=== PATIENT | male | born 1965 | race Caucasian/White ===

== ENCOUNTER 2017-11-25 10:42 | Emergency (ER) | payer MEDICARE, MEDICAID, SELFPAY | END 2017-11-25 12:50 | disposition home or self-care (01) | PROVIDERS: Emergency Provider Nurse Practitioner; Family Provider Internal Medicine Adolescent Medicine; Visit Provider Nurse Practitioner | DX: J32.0 Chronic maxillary sinusitis (principal); I10 Essential (primary) hypertension; E78.5 Hyperlipidemia, unspecified; E11.9 Type 2 diabetes mellitus without complications; F17.210 Nicotine dependence, cigarettes, uncomplicated; Z88.0 Allergy status to penicillin | CPT/HCPCS: G0463; 99201 ==

== ENCOUNTER → 2017-12-24 07:24 | Outpatient (CLI) | payer MEDICARE, MEDICAID, SELFPAY ==
[2017-12-24 09:02] LABS: Hemoglobin A1C 8.7 % (0.0-7.0)
[2017-12-24 09:08] LABS: Alanine Aminotransferase 51 U/L (12-78); Albumin Level 3.8 gm/dL (3.4-5.0); Albumin/Globulin Ratio 1.2 (1.1-1.8); Alkaline Phosphatase 80 U/L (46-116); Anion Gap 15.8 mEq/L (5-15); Aspartate Amino Transferase 18 U/L (15-37); Bilirubin,Total 0.2 mg/dL (0.2-1.0); Blood Urea Nitrogen 20 mg/dL (7-18); Carbon Dioxide 28 mmol/L (21.0-32.0); Chloride 100 mmol/L (98-107); Chol/HDL Ratio 4.7 (1-3.5); Cholesterol 235 mg/dL (140-200); Estimated Glomerular Filt Rate 64 ml/min (>60); GFR (African American) 78 ML/MIN (>60); Globulin 3.2 gm/dl (1.3-3.2); Glucose 160 mg/dL (74-106); HDL Cholesterol 50 mg/dL (27-67); LDL Cholesterol 139 mg/dL (0-130); Potassium 4.8 mmoL/L (3.5-5.1); Sodium 139 mmol/L (136-145); Thyroid Stimulating Hormone 3.03 uIU/ml (0.358-3.740); Triglycerides 228 mg/dL (30-200); VLDL Cholesterol 46 mg/dL (0-40)
[2017-12-25 10:16] LABS: Creatinine, Urine 151.6 mg/dL (Not Estab.); Microalbumin, Urine 31.4 ug/mL (Not Estab.)
== END ==
PROVIDERS: PCP Internal Medicine Adolescent Medicine; Visit Provider Nurse Practitioner Family
DX: E11.42 Type 2 diabetes mellitus with diabetic polyneuropathy (principal); R80.9 Proteinuria, unspecified; E03.9 Hypothyroidism, unspecified
CPT/HCPCS: 36415; 80053; 80061; 82043; 83036; 84443

== ENCOUNTER → 2018-03-04 07:17 | Outpatient (CLI) | payer MEDICARE, MEDICAID, SELFPAY ==
--- NOTE | 2018-03-04 07:24 | XR_ITS ---
XR hip LT 2-3V w/pelvis Ordering Physician: Christina Deutsch Patient Age: 52 years: Male HISTORY: ITS.REASON: LT HIP PAIN , SACROILIAC JOINT DISFUNCTION OF LT SIDE TECHNIQUE: AP pelvis with AP and frog-leg view left hip COMPARISON :Previous left hip from 2008 FINDINGS . Joint spaces fairly well maintained with only borderline narrowing at superior hip joint space. No appreciable change since 2008. Femoral head & neck normal contour . Sclerotic bone island is seen at the left femoral neck 7 mm size. Another bone island 6 mm at at superior left subcapital region. These are stable appearing bone islands versus 2008. Patient also has a similar 6 mm bone island at base of right femoral head The right hip appears intact again with only borderline narrowing superior right hip joint space. . The remainder of the visualized pelvis appears stable and satisfactory. The mild variations at the inferior left sacral contour are again noted. Anatomical variation feature. IMPRESSION Left hip intact with no fracture nor subluxation. Hip joint spaces are well-maintained overall. Only question borderline narrowing at both superior hip joint spaces bilateral. Osseous pelvis intact..
--- NOTE | 2018-03-04 07:24 | XR_ITS ---
XR sacroiliac joint BI min 3V Ordering Physician: Christina Deutsch Patient Age: 52 years: Male HISTORY: ITS.REASON: LT HIP PAIN , SACROILIAC JOINT DISFUNCTION OF LT SIDE TECHNIQUE: AP and Oblique views SI joints COMPARISON :Left hip from today. Previous KUB 2008 FINDINGS The SI joints appear are well-maintained and appears normal width. No abnormal sclerosis nor irregularity is been no significant change since 2008 KUB. Sacrum unremarkable. 3.5 mm calcification is Likely a Phlebolith projects over the left sacrum , or calcification within stool. IMPRESSION: Normal SI joints.
== END ==
PROVIDERS: PCP Internal Medicine Adolescent Medicine; Visit Provider Nurse Practitioner Family
DX: M25.552 Pain in left hip (principal); M53.3 Sacrococcygeal disorders, not elsewhere classified
CPT/HCPCS: 72202; 73502

== ENCOUNTER 2018-04-30 08:00 | Outpatient (RCR) | payer MEDICARE, MEDICAID, SELFPAY ==
--- NOTE | 2018-03-10 09:56 | HMH.PTOPEV ---
Rehab Outpatient Evaluation Rehab OP Evaluation Start: 03/10/18 09:17 Freq: Status: Active Protocol: Document 03/10/18 09:18 PAMELA (Rec: 03/10/18 09:56 PAMELA [id number]) Electronically Signed By Julito Mejia, PT 03/10/18 09:18 Outpatient Therapy Subjective History Subjective History Pt reports injury to L hip and low back during a slip/fall ~ 1 month ago. Pt reports L lateral and anterior hip pain initially, however, more L sided LBP of late with radicular s/s from L hip to L calf area. 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 Chief Complaint Pain Stiff Paresthesia Weakness Symptom Type Ache Throb Dull Numbness Tingling Shooting Symptoms Relieved By Rest/Positioning Ice Symptoms Aggravated By Sitting Bending/Stooping Physical Activity Lifting Prior Functional Limitations None Current Functional Limitations Lifting Driving Sitting Bending/Stooping Symptom Description Constant but Variable Level of pain today (0-10) 7 Pain scale - at its best (0-10) 6 Pain scale - at its worst (0-10) 10 Lumbopelvic Eval Posture Thoracic Spine Posture Standing Position Neutral Lumbar Spine Posture Standing Position Flattened Assistive device Assistive Devices None / NA Gait Observation General Gait Pattern Observation Antalgic Gait Palapation tenderness right lumbar spinal tenderness Yes: 3/4 paraspinal tenderness Yes: 1/4 Lumbar/Sacral Palpation Findings Tenderness left lumbar spinal tenderness Yes paraspinal tenderness Yes buttock tenderness Yes: all 3/4 Lumbar/Sacral Palpation Findings Tenderness Muscle Guarding Accessory Movement T-spine Vertebrae Accessory Movements Central P/A [place] that Elicit Symptoms T10 left T11 left T12 left L-spine Vertebrae Accessory Movements Central [place] [place] that Elicit Symptoms L2 left
== END 2018-04-30 08:01 | disposition home or self-care (01) ==
LOC: PT 08:00
PROVIDERS: Family Provider Internal Medicine Adolescent Medicine; PCP Internal Medicine Adolescent Medicine; Visit Provider Nurse Practitioner Family
DX: M25.552 Pain in left hip (principal); M53.3 Sacrococcygeal disorders, not elsewhere classified
CPT/HCPCS: 97010; 97012; 97014; 97035; 97110; 97140; G0283

== ENCOUNTER 2018-08-10 03:54 | Observation (INO) ==
[2018-08-10 04:20] LABS: Basophils # 0.1 K/mm3 (0-0.2); Basophils % 0.8 % (0.1-2.0); Eosinophils # 0.2 K/mm3 (0.0-0.4); Eosinophils % 1.9 % (0.1-12.0); Hematocrit 41.2 % (42.0-52.0); Hemoglobin 14.6 g/dL (14.1-18.0); Lymphocytes # 3.7 K/mm3 (0.7-4.5); Lymphocytes % 34.4 K/mm3 (10-50); Mean Corpuscular HGB Conc 35.5 g/dL (31.8-35.4); Mean Corpuscular Hemoglobin 32.2 pg (27.0-31.2); Mean Corpuscular Volume 90.6 fl (80-94); Mean Platelet Volume 7.2 fl (7.4-10.4); Monocytes # 0.7 K/mm3 (0.1-1.0); Monocytes % 6.4 % (1.7-9.3); Neutrophils # 6.2 K/mm3 (1.8-7.8); Neutrophils % 56.6 % (37.0-80.0); Platelet Count 257 K/mm3 (142-424); Red Blood Count 4.54 M/mm3 (4.60-6.20); Red Cell Distribution Width 13.4 % (11.5-17.5); White Blood Count 10.9 K/mm3 (4.8-10.8)
[2018-08-10 04:42] LABS: Anion Gap 9.9 mEq/L (5-15); Blood Urea Nitrogen 23 mg/dL (7-18); Calcium 8.4 mg/dL (8.5-10.1); Carbon Dioxide 25 mmol/L (21.0-32.0); Chloride 103 mmol/L (98-107); Glucose 265 mg/dL (74-106); Potassium 3.9 mmoL/L (3.5-5.1); Sodium 134 mmol/L (136-145); T4 (Thyroxine) 6.5 ug/dl (4.7-13.3); Thyroid Stimulating Hormone 5.16 uIU/ml (0.358-3.740)
--- NOTE | 2018-08-10 04:56 | Emergency Department Note ---
ED Disposition Clinical Impression: Overweight, Tobacco use Chest pain Qualifiers: Chest pain type: precordial pain Qualified Code(s): R07.2 - Precordial pain Diabetes mellitus, insulin dependent (IDDM), uncontrolled Qualifiers: Glycemic state: with hyperglycemia Qualified Code(s): E10.65 - Type 1 diabetes mellitus with hyperglycemia Disposition: Admitted as Observation Condition on Discharge: Good Referrals: Dsutin Cosby MD [Primary Care Provider] - - Critical Care Critical Care Time: No Attestation: On 08/10/18, the high probability of a clinically significant, sudden or life threatening deterioration of the following system(s) required my full and direct attention, intervention and personal management. The time I documented below is in addition to time spent performing reported procedures but includes the following listed in this critical care notation. Medical Decision Making - Medical Records Medical records reviewed: Yes: I reviewed the patient's medical records. - Mamadou Inquiry Pt receiving controlled substance: No Vital Signs: 08/10/18 03:54 08/10/18 04:24 Temperature 98.5 F Temperature Source Oral Pulse Rate [Right Brachial] 88 83 Respiratory Rate 16 16 Blood Pressure [Right Arm] 126/89 122/80 Blood Pressure Mean [Right Arm] 101 94 02 Sat by Pulse Oximetry 96 94 L Oxygen Delivery Method Room Air - Lab Data Lab results reviewed: Yes: I reviewed the patient's lab results. Lab Results 08/10/18 04:01: WBC 10.9 H, RBC 4.54 L, Hgb 14.6, Hct 41.2 L, MCV 90.6, MCH 32.2 H, MCHC 35.5 H, RDW 13.4, Plt Count 257, MPV 7.2 L, Neut % (Auto) 56.6, Lymph % (Auto) 34.4, [place]ayer % (Auto) 6.4, Eos % (Auto) 1.9, Baso % (Auto) 0.8, Neut # (Auto) 6.2, Lymph # (Auto) 3.7, [place] # (Auto) 0.7, Eos # (Auto) 0.2, Baso # (Auto) 0.1 08/10/18 04:01: Sodium 134 L, Potassium 3.9, Chloride 103, Carbon Dioxide 25, Anion Gap 9.9, BUN 23 H, Creatinine 1.09, Estimated Creat Clear 111, Estimated GFR 71, Est GFR ( Amer) 86, Glucose 265 H, Calcium 8.4 L, Troponin I < 0.02, TSH 5.16 H D, Thyroxine (T4) 6.5 Result diagrams: 08/10/18 04:01 08/10/18 04:01 Orders (Tests/Meds): ED MEDICATIONS Generic Name Dose Route Start Last Admin Trade Name Freq PRN Reason Stop Dose Admin Sodium Chloride 1,000 mls @ 999 mls/hr 08/10/18 04:15 08/10/18 04:07 Sod Chlor 0.9% 1000ml Bag IV 08/10/18 05:15 999 mls/hr .Q1H1M DAVID Administration Discontinued Medications Generic Name Dose Route Start Last Admin Trade Name Freq PRN Reason Stop Dose Admin Aspirin 324 mg 08/10/18 03:58 08/10/18 04:06 Aspirin 81mg Chewable Tablet PO 08/10/18 03:59 324 mg ONCE ONE Administration Nitroglycerin 1 gm 08/10/18 03:58 08/10/18 04:06 Nitroglycerin 1 Inch Oint Udp TD 08/10/18 03:59 1 gm ONCE ONE Administration Ondansetron HCl 4 mg 08/10/18 04:07 08/10/18 04:08 Zofran 4mg/2ml Vial IV 08/10/18 04:08 4 mg ONCE ONE Administration ORDERS Category Date Time Status ECG Request by /Nadia Stat Y 08/10/18 03:58 Ordered - Radiology Data #1 Image(s): Chest Image Reviewed: Yes I reviewed the patient's radiology image Preliminary Findings: Normal/NAD - ECG Data Tracing #1 Normal Sinus Rhythm: Yes Ischemic changes: non-specific ST-T wave changes - Physician Consults Physician Consulted: tammie Reason -: Admission Chest Pain HPI - General Chief Complaint: Chest Pain Stated Complaint: chest pain Time Seen by Provider: 08/10/18 04:05 Mode of Arrival: Ambulatory Limitations: No Limitations Description of Symptoms (Recalled from ER Triage Doc. by RN): Chest pain that started approx 0300. Reports it feels like pressure and intermittent sharp/stabbing pain when taking a deep breath. Reports it as mid sternal, no radiating. C/o nausea, and soa. - History of Present Illness HPI narrative: new onset of ant chest pain - sharp with no known ht disease - MD complaint: chest pain indicative of cardiac Onset (ago): hour(s) Duration: now resolved Activity at onset: during rest Pain location: substernal Severity: moderate Quality: sharp Pain radiation: none Relieving factors: nitroglycerin Associated symptoms: nausea, dyspnea Risk Factors for CAD: Hypertension, Family Hx of CAD, Diabetes, Smoking Treatments prior to or on arrival for Cardiac Chest Pain: none - QUENTIN Score Non-Stemi Age of patient: Less than 65 yrs Number of risk factors for CAD: Presence of 3 or more Prior coronary artery stenosis(seen in coronary angiography): Less than 50% ST-Segment deviation on ECG (more than 1 min): Absent Prior aspirin intake: No ASA in the last 7 days Severe anginal chest pain: No or one episode in last 24 hours Elevated cardiac markers(CK-MB or troponin): Absent Non-Stemi Risk Score: 1 - Related Data Home Medications Medication Instructions Recorded Confirmed Cyclobenzaprine HCl 10 mg PO DAILY 08/10/18 08/10/18 [Cyclobenzaprine 10mg Tab] Escitalopram Oxalate 10 mg PO DAILY 08/10/18 08/10/18 Fluticasone/Vilanterol [Breo 1 each IH DAILY 08/10/18 08/10/18 Ellipta 100-25 Mcg INH] Insulin Glargine,Hum.rec.anlog 46 unit SQ 08/10/18 08/10/18 [Toujeo Solostar] Levocetirizine Dihydrochloride 5 mg PO DAILY 08/10/18 08/10/18 [Xyzal] Magnesium Oxide/Magnesium 300 mg PO DAILY 08/10/18 08/10/18 [Magnesium 300 mg Capsule] Meloxicam 15 mg PO DAILY 08/10/18 08/10/18 Omeprazole [Omeprazole 40mg 40 mg PO DAILY 08/10/18 08/10/18 Capsule] Pregabalin [Lyrica 100mg Cap] 50 mg PO DAILY 08/10/18 08/10/18 Rosuvastatin Calcium 20 mg PO 08/10/18 08/10/18 Sitagliptin Phos/Metformin HCl 1 each PO DAILY 08/10/18 08/10/18 [Janumet 50-1,000 mg Tablet] Trazodone HCl 150 mg PO HS 08/10/18 08/10/18 Allergies Allergy/AdvReac Type Severity Reaction Status Date / Time penicillin G [PENICILLIN G] Allergy Unknown Hives Verified 08/10/18 04:00 [facility] History I have reviewed the patient's past medical history: Yes Medical History: Reports:: Diabetes Mellitus Type 2 Denies:: Cancer, Diabetes Mellitus Type 1, MRSA Amputation: No Fractures: No - Social History Smoking Status: Current every day smoker Tobacco Type: cigarettes Alcohol Intake: never - Psychiatric History Expresses thoughts of harming self/others: None Suicide Plan Description: No Plan ROS Obtained: Yes All systems reviewed & no additional complaints - Constitutional Constitutional: Denies fever(s) - Eyes Eyes: Denies change in vision - ENT Ears, Nose, Mouth, and Throat: Denies sore throat, Denies vertigo/dizziness - Cardiovascular Cardiovascular: Reports chest pain, Reports dyspnea - Respiratory Respiratory: No cough - Gastrointestinal Gastrointestingal: Denies: abdominal pain - Genitourinary Male Genitourinary: Denies hematuria - Musculoskeletal Musculoskeletal: Denies joint pain, Denies limited range of motion - Integumentary/Breasts Skin/Breast: Denies rash - Neurologic Neurologic: Denies seizure-like activity Physical Exam - General General appearance: alert, in no apparent distress - Head Head exam: normocephalic - Eye Eye exam: Present: PERRL, EOMI - ENT ENT exam: Present: mucous membranes dry - Neck Neck exam: Present: trachea midline - Respiratory Respiratory exam: Present: normal lung sounds bilaterally - Cardiovascular Cardiovascular exam: Present: regular rate, systolic murmur, +S4 - Abdominal Exam Abdominal exam: Present: soft - Extremities Exam Extremities exam: Absent: calf tenderness - Neurological Exam Neurological exam: Present: alert, oriented X3, CN II-XII intact - Psychiatric Psychiatric exam: Present: normal affect - Skin Skin exam: Present: warm. Absent: rash
[2018-08-10 05:21] LABS: Cholesterol 141 mg/dL (140-200); HDL Cholesterol 35 mg/dL (27-67)
[2018-08-10 05:23] LABS: Triglycerides 413 mg/dL (30-200)
--- NOTE | 2018-08-10 07:25 | Pharmacy Consult Notes ---
[facility] Pharmacy VTE Monitoring - Patient Demographics Admission date: 08/10/18 Report Date: 08/10/18 Time: 07:25 Allergies/Adverse Reactions: Patient Allergies penicillin G [PENICILLIN G] Allergy (Unknown, Verified 08/10/18 04:00) Hives Height: 1.7 m Weight: 101.378 kg Patient Problems: Current Active Problems Chest pain (Acute) Diabetes mellitus, insulin dependent (IDDM), uncontrolled (Acute) Overweight (Acute) Tobacco use (Acute) - VTE Risk Labs: VTE Related Lab Results Hgb 14.6 g/dL (14.1-18.0) 08/10/18 04:01 Hct 41.2 % (42.0-52.0) L 08/10/18 04:01 Plt Count 257 K/mm3 (142-424) 08/10/18 04:01 BUN 23 mg/dL (7-18) H 08/10/18 04:01 Creatinine 1.09 mg/dL (0.70-1.30) 08/10/18 04:01 Estimated Creat Clear 111 mL/min (0-300) 08/10/18 04:01 VTE Score: 4 VTE Risk Level: Low Risk - Prophylaxis VTE Prophylaxis Ordered?: Yes Types of VTE Prophylaxis: TEDS Knee High Location of Applied Device: Bilateral Lower Extremeties - VTE Diagnosis Confirmed Treatment or plan recommended: Continue Current Treatment
--- NOTE | 2018-08-10 07:26 | History & Physical Report ---
*Admission Date: 08/10/18 *Chief complaint: Left anterior chest pain *History of present illness: 53-year-old white male with significant cardiac risk factors 3 who presented to the emergency department with 2 hours of substernal pressure-like pain that was associated with work early this morning. 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 ER treatment significantly helped with his pain and currently he is pain-free. He was admitted for risk stratification because of his significant risk factors. [facility] History I have reviewed the patient's past medical history: Yes Medical History: Reports:: Diabetes Mellitus Type 2, Hyperlipidemia, Hypertension Denies:: Cancer, Diabetes Mellitus Type 1, MRSA Other Medical History: Reports: Arthritis, Sinus Problems Other Surgeries: Yes: Colonoscopy Amputation: No Fractures: No - *Social History Educational Level: Completed High School Smoking Status: Current every day smoker Tobacco Type: cigarettes Alcohol Intake: never Occupational Status: employed Housing: house Household Members: spouse - Psychiatric History Expresses thoughts of harming self/others: None Suicide Plan Description: No Plan *Family Hx:: Adopted, Cancer, Diabetes, Hyperlipidemia, Hypertension, Thyroid Disorder Review of Systems - Review of Systems Review of systems:: pertinent systems reviewed and negative unless documented below - *Cardiovascular Reports chest pain, Reports chest pain with activity, Reports shortness of breath, Denies irregular heart rhythm, Denies leg swelling, Denies shortness of breath when lying down - *Respiratory Denies change in phlegm color, Denies chest congestion, Denies cough - *Gastrointestinal Denies abdominal pain - *Neurologic Denies seizure-like activity, Denies dizziness Meds Home Medications Medication Instructions Recorded Confirmed Type Cyclobenzaprine HCl 10 mg PO DAILY 08/10/18 08/10/18 History [Cyclobenzaprine 10mg Tab] Escitalopram Oxalate 10 mg PO DAILY 08/10/18 08/10/18 History Fluticasone/Vilanterol [Breo 1 each IH DAILY 08/10/18 08/10/18 History Ellipta 100-25 Mcg INH] Insulin Glargine,Hum.rec.anlog 46 unit SQ HS 08/10/18 08/10/18 History [Dana Ballesteros] Levocetirizine Dihydrochloride 5 mg PO DAILY 08/10/18 08/10/18 History [Xyzal] Lisinopril [Lisinopril 10mg Tab] 10 mg PO DAILY 08/10/18 08/10/18 History Magnesium Oxide/Magnesium 400 mg PO BID 08/10/18 08/10/18 History [Magnesium 300 mg Capsule] Meloxicam 15 mg PO DAILY PRN 08/10/18 08/10/18 History Omeprazole [Omeprazole 40mg 40 mg PO DAILY 08/10/18 08/10/18 History Capsule] Pregabalin [Lyrica 100mg Cap] 50 mg PO DAILY 08/10/18 08/10/18 History Rosuvastatin Calcium 20 mg PO HS 08/10/18 08/10/18 History Sitagliptin Phos/Metformin HCl 1 each PO BID 08/10/18 08/10/18 History [Janumet 50-1,000 mg Tablet] Trazodone HCl 150 mg PO HS 08/10/18 08/10/18 History Allergies Allergy/AdvReac Type Severity Reaction Status Date / Time penicillin G [PENICILLIN G] Allergy Unknown Hives Verified 08/10/18 04:00 Exam Vital signs and Labs for Last 24 Hours: Temp Pulse Resp BP Pulse Ox 98 F 78 18 150/79 95 08/10/18 05:27 08/10/18 05:51 08/10/18 05:51 08/10/18 05:51 08/10/18 06:00 Laboratory Results - last 24 hr 08/10/18 04:01: WBC 10.9 H, RBC 4.54 L, Hgb 14.6, Hct 41.2 L, MCV 90.6, MCH 32.2 H, MCHC 35.5 H, RDW 13.4, Plt Count 257, MPV 7.2 L, Neut % (Auto) 56.6, Lymph % (Auto) 34.4, [place] % (Auto) 6.4, Eos % (Auto) 1.9, Baso % (Auto) 0.8, Neut # (Auto) 6.2, Lymph # (Auto) 3.7, [place] # (Auto) 0.7, Eos # (Auto) 0.2, Baso # (Auto) 0.1 08/10/18 04:01: Sodium 134 L, Potassium 3.9, Chloride 103, Carbon Dioxide 25, Anion Gap 9.9, BUN 23 H, Creatinine 1.09, Estimated Creat Clear 111, Estimated GFR 71, Est GFR ( Amer) 86, Glucose 265 H, Calcium 8.4 L, Troponin I < 0.02, TSH 5.16 H D, Thyroxine (T4) 6.5 08/10/18 04:01: Triglycerides 413 H, Cholesterol 141, HDL Cholesterol 35, Cholesterol/HDL Ratio 4.0 H 08/10/18 04:01: Magnesium 1.6 08/10/18 06:37: POC Glucose 263 H I & O for Last 24 hours: Intake & Output 08/07/18 08/08/18 08/09/18 08/10/18 11:59 11:59 11:59 11:59 Intake Total 1000 / 1000 Balance 1000 / 1000 Weight 223 lb 8 oz - *Routine HEENT Exam Head: Present: normocephalic Eye: Present: EOMI ENT: Present: mucous membranes moist - *Routine Neck Exam Present: full ROM. Absent: JVD - *Routine Respiratory Exam Present: CTA bilaterally - *Routine Cardiovascular Exam Present: RRR, Normal S1, Normal S2 - *Routine Abdominal Exam Present: soft, normoactive bowel sounds. Absent: tenderness - *Routine Extremities Exam Absent: cyanosis, clubbing, edema - *Routine Skin Exam Present: warm. Absent: rash - *Routine Neurological Exam Present: alert, oriented X3 - Routine Psychiatric Exam Present: normal affect Assessment and Plan (1) Chest pain Current visit: Yes Status: Acute Qualifiers: Chest pain type: precordial pain Qualified Code(s): R07.2 - Precordial pain Category: Medical Code(s): R07.9 - Chest pain, unspecified Significant risk factors. Cardiology consultation. Patient deserves significant evaluation given his risk factors and character of his pain. (2) Diabetes mellitus, insulin dependent (IDDM), uncontrolled Current visit: Yes Status: Acute Qualifiers: Glycemic state: with hyperglycemia Qualified Code(s): E10.65 - Type 1 diabetes mellitus with hyperglycemia Category: Medical Code(s): E10.65 - Type 1 diabetes mellitus with hyperglycemia (3) Overweight Current visit: Yes Status: Acute Category: Medical Code(s): E66.3 - Overweight Complicates all aspects of his care (4) Tobacco use Current visit: Yes Status: Acute Category: Social Hx Code(s): Z72.0 - Tobacco use
--- NOTE | 2018-08-10 08:04 | Consult Report ---
History of Present Illness Consult date: 08/10/18 Requesting physician: Dustin Cosby Consult reason: chest pain Chief complaint: chest pain Additional Medical History:: 1. Diabetes mellitus, type II, treated for about 10 years 2. Tobacco use, 1 pack per day since age 27 3. hyperlipidemia 4. Hypertension 5. Patient adopted with incomplete family history database, mother in her early 60s with history of diabetes 6. Gastroesophageal reflux disease, on PPI History of present illness: 53-year-old white male history of diabetes, hypertension, hyperlipidemia and tobacco use was at work at [employer] with onset of left-sided chest discomfort (both sharp and heavy sensations) with associated shortness of breath and diaphoresis. Some increase in discomfort with deep breathing. Symptoms had mildly improved with belching but returned shortly thereafter. Patient was brought to the emergency department for further. He relates resolution of symptoms shortly after being started on nitroglycerin paste. Initial troponin is normal. EKG showed no acute ST segment changes with sinus rhythm. Patient denies any previous cardiac workup or previous cardiac history. Cardiology consulted for evaluation recommendations. No appreciable chest wall tenderness. No current discomfort with deep breathing. Denies any recent fever, chills, nausea, vomiting or diarrhea. He does relate feeling fatigued with exertion over the last week which is new to him. [facility] History Medical History: Reports:: Diabetes Mellitus Type 2, Hyperlipidemia, Hypertension Denies:: Cancer, Diabetes Mellitus Type 1, MRSA Other Medical History: Reports: Arthritis, Sinus Problems Other Surgeries: Yes: Colonoscopy Amputation: No Fractures: No - *Social History Educational Level: Completed High School Smoking Status: Current every day smoker Tobacco Type: cigarettes Alcohol Intake: never Occupational Status: employed Housing: house Household Members: spouse - Psychiatric History Expresses thoughts of harming self/others: None Suicide Plan Description: No Plan *Family Hx:: Adopted, Cancer, Diabetes, Hyperlipidemia, Hypertension, Thyroid Disorder Meds Home Medications Medication Instructions Recorded Confirmed Type Cyclobenzaprine HCl 10 mg PO DAILY 08/10/18 08/10/18 History [Cyclobenzaprine 10mg Tab] Escitalopram Oxalate 10 mg PO DAILY 08/10/18 08/10/18 History Fluticasone/Vilanterol [Breo 1 puff IH DAILY 08/10/18 08/10/18 History Ellipta 100-25 Mcg INH] Insulin Glargine,Hum.rec.anlog 46 unit SQ HS 08/10/18 08/10/18 History [Toumolly Solostar] Levocetirizine Dihydrochloride 5 mg PO DAILY 08/10/18 08/10/18 History [Xyzal] Lisinopril [Lisinopril 10mg Tab] 10 mg PO DAILY 08/10/18 08/10/18 History Magnesium Oxide/Magnesium 300 mg PO BID 08/10/18 08/10/18 History [Magnesium 300 mg Capsule] Meloxicam 15 mg PO DAILYP PRN 08/10/18 08/10/18 History Omeprazole [Omeprazole 40mg 40 mg PO DAILY 08/10/18 08/10/18 History Capsule] Pregabalin [Lyrica 100mg Cap] 50 mg PO DAILY 08/10/18 08/10/18 History Rosuvastatin Calcium 20 mg PO HS 08/10/18 08/10/18 History Sitagliptin Phos/Metformin HCl 1 each PO BID 08/10/18 08/10/18 History [Janumet 50-1,000 mg Tablet] Trazodone HCl 150 mg PO HS 08/10/18 08/10/18 History Allergies Allergy/AdvReac Type Severity Reaction Status Date / Time penicillin G [PENICILLIN G] Allergy Unknown Hives Verified 08/10/18 04:00 Review of Systems - *Cardiovascular Reports chest pain - *Respiratory Denies cough, Denies shortness of breath with activity - *Gastrointestinal Denies abdominal pain, Denies loose stools, Denies loose stools - *Genitourinary Denies difficulty urinating, Denies blood in urine - *Musculoskeletal Denies back pain - *Neurologic Denies seizure-like activity, Denies dizziness Exam Vital signs and Labs for Last 24 Hours: Temp Pulse Resp BP Pulse Ox 98 F 78 18 150/79 95 08/10/18 05:27 08/10/18 05:51 08/10/18 05:51 08/10/18 05:51 08/10/18 06:00 Laboratory Results - last 24 hr 08/10/18 04:01: WBC 10.9 H, RBC 4.54 L, Hgb 14.6, Hct 41.2 L, MCV 90.6, MCH 32.2 H, MCHC 35.5 H, RDW 13.4, Plt Count 257, MPV 7.2 L, Neut % (Auto) 56.6, Lymph % (Auto) 34.4, [place] % (Auto) 6.4, Eos % (Auto) 1.9, Baso % (Auto) 0.8, Neut # (Auto) 6.2, Lymph # (Auto) 3.7, [place] # (Auto) 0.7, Eos # (Auto) 0.2, Baso # (Auto) 0.1 08/10/18 04:01: Sodium 134 L, Potassium 3.9, Chloride 103, Carbon Dioxide 25, Anion Gap 9.9, BUN 23 H, Creatinine 1.09, Estimated Creat Clear 111, Estimated GFR 71, Est GFR ( Amer) 86, Glucose 265 H, Calcium 8.4 L, Troponin I < 0.02, TSH 5.16 H D, Thyroxine (T4) 6.5 08/10/18 04:01: Triglycerides 413 H, Cholesterol 141, HDL Cholesterol 35, Cholesterol/HDL Ratio 4.0 H 08/10/18 04:01: Magnesium 1.6 08/10/18 06:37: POC Glucose 263 H I & O for Last 24 hours: Intake & Output 08/07/18 08/08/18 08/09/18 08/10/18 11:59 11:59 11:59 11:59 Intake Total 1000 / 1000 Balance 1000 / 1000 Weight 223 lb 8 oz - *Routine Neck Exam Present: supple. Absent: JVD, carotid bruit - *Routine Respiratory Exam Present: CTA bilaterally. Absent: accessory muscle use, rales, rhonchi, wheezes - *Routine Cardiovascular Exam Present: RRR. Absent: murmur, gallop, rubs - *Routine Abdominal Exam Present: soft. Absent: tenderness, distended, guarding - *Routine Extremities Exam Absent: edema, calf tenderness - *Routine Neurological Exam Present: alert, oriented X3, moving all extremities Assessment and Plan (1) Chest pain Current visit: Yes Status: Acute Qualifiers: Chest pain type: precordial pain Qualified Code(s): R07.2 - Precordial pain Category: Medical Code(s): R07.9 - Chest pain, unspecified (2) Diabetes mellitus, insulin dependent (IDDM), uncontrolled Current visit: Yes Status: Acute Qualifiers: Glycemic state: with hyperglycemia Qualified Code(s): E10.65 - Type 1 diabetes mellitus with hyperglycemia Category: Medical Code(s): E10.65 - Type 1 diabetes mellitus with hyperglycemia (3) Overweight Current visit: Yes Status: Acute Category: Medical Code(s): E66.3 - Overweight (4) Tobacco use Current visit: Yes Status: Acute Category: Social Hx Code(s): Z72.0 - To bacco use (5) Hypertension Current visit: Yes Status: Acute Category: Medical Code(s): I10 - Essential (primary) hypertension (6) Hyperlipidemia associated with type 2 diabetes mellitus Current visit: Yes Status: Acute Category: Medical Code(s): E11.69 - Type 2 diabetes mellitus with other specified complication; E78.5 - Hyperlipidemia, unspecified - Assessment and plan all Dx Assessment and Plan for all problems:: 1. Exertional Chest pain in a diabetic smoker with QUENTIN risk score of 2 (risk factors, recurrent chest pain). Recommend proceeding with cardiac cath in this male with multiple risk factors. 2. Further recommendations to follow. 3. Recommend Daily ASA 81 mg.
--- NOTE | 2018-08-10 16:46 | Discharge Summary ---
General - General Admission date:: 08/10/18 Discharge date: 08/10/18 HPI HPI: 53-year-old white male with significant cardiac risk factors 3 who presented to the emergency department with 2 hours of substernal pressure-like pain that was associated with work early this morning. 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 ER treatment significantly helped with his pain and currently he is pain-free. He was admitted for risk stratification because of his significant risk factors. Hospital Course Hospital Course: Patient was admitted, and out for myocardial infarction, given his significant risk factors he was subjected to left cardiac catheterization. The results of which and cardiac consultation recommendations are noted in the text below: ANGIOGRAPHIC RESULTS: 1. The left main artery normal 2. The left anterior descending artery normal 3. The circumflex artery nondominant normal 4. The right coronary artery is dominant with mid vessel 10-20% nonflow limiting stenoses 5. The SANTIZO ventriculogram reveals normal 65% 6. The left ventricular end-diastolic pressure severely elevated at 35 mmHg IMPRESSION: 1. Mild nonflow limiting coronary artery disease 2. Severe diastolic dysfunction which likely accounts for patient's symptomatology 3. Normal ejection fraction PLAN: 1. Treatment of severe diastolic dysfunction with diuretics and better blood pressure control 2. Consider evaluation for sleep apnea 3. Weight-loss physical therapy Patient will be discharged with medication change and recommendations as noted above. Follow-up in my office on Friday. Strongly encouraged to stop smoking. Objective Vital signs: Temp Pulse Resp BP Pulse Ox 97.9 F 63 18 148/82 98 08/10/18 16:00 08/10/18 16:00 08/10/18 16:00 08/10/18 16:00 08/10/18 16:00 Narrative: Please see physical exam notes from admission H&P this morning Results Labs on day of discharge: Labs from last 24 hours 08/10/18 08/10/18 08/10/18 11:21 08:15 06:37 WBC RBC Hgb Hct MCV MCH MCHC RDW Plt Count MPV Neut % (Auto) Lymph % (Auto) [place] % (Auto) Eos % (Auto) Baso % (Auto) Neut # (Auto) Lymph # (Auto) [place] # (Auto) Eos # (Auto) Baso # (Auto) Sodium Potassium Chloride Carbon Dioxide Anion Gap BUN Creatinine Estimated Creat Clear Estimated GFR Est GFR ( Amer) Glucose POC Glucose 263 H Calcium Magnesium Troponin I < 0.02 < 0.02 Triglycerides Cholesterol HDL Cholesterol Cholesterol/HDL Ratio TSH Thyroxine (T4) 08/10/18 08/10/18 08/10/18 04:01 04:01 04:01 WBC RBC Hgb Hct MCV MCH MCHC RDW Plt Count MPV Neut % (Auto) Lymph % (Auto) [place] % (Auto) Eos % (Auto) Baso % (Auto) Neut # (Auto) Lymph # (Auto) [place] # (Auto) Eos # (Auto) Baso # (Auto) Sodium 134 L Potassium 3.9 Chloride 103 Carbon Dioxide 25 Anion Gap 9.9 BUN 23 H Creatinine 1.09 Estimated Creat Clear 111 Estimated GFR 71 Est GFR ( Amer) 86 Glucose 265 H POC Glucose Calcium 8.4 L Magnesium 1.6 Troponin I < 0.02 Triglycerides 413 H Cholesterol 141 HDL Cholesterol 35 Cholesterol/HDL Ratio 4.0 H TSH 5.16 H D Thyroxine (T4) 6.5 08/10/18 04:01 WBC 10.9 H RBC 4.54 L Hgb 14.6 Hct 41.2 L MCV 90.6 MCH 32.2 H MCHC 35.5 H RDW 13.4 Plt Count 257 MPV 7.2 L Neut % (Auto) 56.6 Lymph % (Auto) 34.4 [place] % (Auto) 6.4 Eos % (Auto) 1.9 Baso % (Auto) 0.8 Neut # (Auto) 6.2 Lymph # (Auto) 3.7 [place] # (Auto) 0.7 Eos # (Auto) 0.2 Baso # (Auto) 0.1 Sodium Potassium Chloride Carbon Dioxide Anion Gap BUN Creatinine Estimated Creat Clear Estimated GFR Est GFR ( Amer) Glucose POC Glucose Calcium Magnesium Troponin I Triglycerides Cholesterol HDL Cholesterol Cholesterol/HDL Ratio TSH Thyroxine (T4) DS: Diagnosis - Discharge Diagnosis (1) Chest pain Status: Resolved (2) Diabetes mellitus, insulin dependent (IDDM), uncontrolled Status: Acute (3) Overweight Status: Acute (4) Tobacco use Status: Acute (5) Hypertension Status: Acute (6) Hyperlipidemia associated with type 2 diabetes mellitus Status: Acute (7) Diastolic CHF Status: Acute Discharge Plan - Patient Discharge Instructions ACTIVITY: Continue current activity DIET: low salt diet, cardiac - Follow up Plan Follow up with: Dutsin Cosby MD [Primary Care Provider] - 08/14/18 Disposition: Home, Self-[facility] Medications: Home Medications Medication Instructions Recorded Confirmed Type Albuterol Sulfate [Proventil-HFA 2 puffs IH Q4HP PRN 08/10/18 08/10/18 History 90mcg/puff Inh] Cyclobenzaprine HCl 10 mg PO TIDP PRN 08/10/18 08/10/18 History [Cyclobenzaprine 10mg Tab] Escitalopram Oxalate 10 mg PO DAILY 08/10/18 08/10/18 History Fluticasone Propionate [Flonase 1 spray NS BIDP PRN 08/10/18 08/10/18 History Allergy Relief NS] Fluticasone/Vilanterol [Breo 1 puff IH DAILY 08/10/18 08/10/18 History Ellipta 100-25 Mcg INH] Insulin Glargine,Hum.rec.anlog 46 unit SQ HS 08/10/18 08/10/18 History [Toumolly Solostar] Levocetirizine Dihydrochloride 5 mg PO DAILY 08/10/18 08/10/18 History [Xyzal] Levothyroxine Sodium 25 mcg PO DAILY 08/10/18 08/10/18 History [Levothyroxine 25mcg (0.025mg) Tab] Magnesium Oxide [Magnesium] 400 mg PO BID 08/10/18 08/10/18 History Meloxicam 15 mg PO DAILYP PRN 08/10/18 08/10/18 History Omeprazole [Omeprazole 40mg 40 mg PO DAILY 08/10/18 08/10/18 History Capsule] Pregabalin [Pregabalin 50mg 50 mg PO BID 08/10/18 08/10/18 History Capsule] Rosuvastatin Calcium 20 mg PO HS 08/10/18 08/10/18 History Sitagliptin Phos/Metformin HCl 1 each PO BID 08/10/18 08/10/18 History [Janumet 50-1,000 mg Tablet] Trazodone HCl 150 mg PO HS 08/10/18 08/10/18 History Prescriptions/Medication Reconciliation: New Furosemide [Lasix 20mg tab] 20 mg PO DAILY 30 Days #30 tab Continue Insulin Glargine,Hum.rec.anlog [Dana Ballesteros] 46 unit SQ HS Sitagliptin Phos/Metformin HCl [Janumet 50-1,000 mg Tablet] 1 each PO BID Rosuvastatin Calcium 20 mg PO HS Meloxicam 15 mg PO DAILYP PRN PRN Reason: Inflammation Levocetirizine Dihydrochloride [Xyzal] 5 mg PO DAILY Escitalopram Oxalate 10 mg PO DAILY Cyclobenzaprine HCl [Cyclobenzaprine 10mg Tab] 10 mg PO TIDP PRN PRN Reason: MUSCLE SPASMS Pregabalin [Pregabalin 50mg Capsule] 50 mg PO BID Magnesium Oxide [Magnesium] 400 mg PO BID Albuterol Sulfate [Proventil-HFA 90mcg/puff Inh] 2 puffs IH Q4HP PRN PRN Reason: Shortness Of Breath Levothyroxine Sodium [Levothyroxine 25mcg (0.025mg) Tab] 25 mcg PO DAILY Fluticasone Propionate [Flonase Allergy Relief NS] 1 spray NS BIDP PRN PRN Reason: ALLERGIES Trazodone HCl 150 mg PO HS Fluticasone/Vilanterol [Breo Ellipta 100-25 Mcg INH] 1 puff IH DAILY Changed Lisinopril [Lisinopril 10mg Tab] 20 mg PO DAILY #30 tablet No Action Omeprazole [Omeprazole 40mg Capsule] 40 mg PO DAILY
--- NOTE | 2018-08-10 20:54 | Cardiology Report ---
PROCEDURE: 2-D M-mode and color Doppler study INDICATIONS FOR THE TEST: Chest pain + COPD Heart Murmur Tobacco Smoking+ Palpitations Fatigue Syncope Edema Hypertension+Diabetes Mellitus+ Rheumatic Fever SOB NUÑEZ Obesity+Hyperlipidemia+ Family History HD Additional History PATIENT INFORMATION HEIGHT: 70 WEIGHT:216 GENDER: Male B/P:122/80 2-D/M-MODE INTERPRETATION: 2-D MEASUREMENTS OBSERVED VALUES IN CMS Right Ventricular Dimension (RVDd) 2.9 Interventricular Septum (Thickness)(IVsd) 1.58 Left Ventricular Internal Dimensions(LVIDd) 4.7 Left Ventricular Posterior Wall (Thickness)(LVPWd) 0.8 Aortic Root 3.7 Aortic Cusp Separation 2.3 Left Atrial Dimensions (LAD) 3.9 2D 1. Left atrium is mildly enlarged, left ventricle is normal size, mild concentric left ventricular hypertrophy, visually estimated ejection fraction 55% with no obvious regional wall motion abnormality. 2. The right atrium ventricle are normal size and contractility. 3. The aortic valve is minimally thickened and fibrosed. 4. The mitral and tricuspid valve is grossly normal. 5. The pulmonic valve is poorly visualized. 6. No significant pericardial effusion noted. DOPPLER INTERROGATION: Doppler interrogation of the aortic, mitral and tricuspid valvular presence of mild mitral and tricuspid regurgitation, tricuspid regurgitation jet velocity is insufficient for calculation of the right ventricular systolic pressure, grade 1 diastolic dysfunction seen with tissue Doppler evidence of raised left atrial pressure. CONCLUSION: 1. Mildly enlarged left atrium, normal left ventricular size, mild concentric left ventricular hypertrophy, visually estimated ejection fraction 55% with no obvious regional wall motion abnormality. Grade 1 diastolic dysfunction seen with tissue Doppler evidence of raised left atrial pressure. 2. Mild mitral and tricuspid regurgitation 3. No significant pericardial effusion noted.
== END 2018-08-10 18:50 | disposition home or self-care (01) ==
LOC: ER 03:54 → 2ND 03:54
PROVIDERS: ADMIT Internal Medicine Adolescent Medicine; ATTEND Internal Medicine Adolescent Medicine

== ENCOUNTER → 2018-09-04 07:45 | Outpatient (CLI) | payer MEDICARE, MEDICAID, SELFPAY ==
[2018-09-04 08:22] LABS: Basophils # 0.1 K/mm3 (0-0.2); Basophils % 0.7 % (0.1-2.0); Eosinophils # 0.2 K/mm3 (0.0-0.4); Eosinophils % 2.2 % (0.1-12.0); Hemoglobin 14.6 g/dL (14.1-18.0); Lymphocytes # 3.4 K/mm3 (0.7-4.5); Lymphocytes % 40.4 K/mm3 (10-50); Mean Corpuscular HGB Conc 33.2 g/dL (31.8-35.4); Mean Corpuscular Hemoglobin 29.6 pg (27.0-31.2); Mean Corpuscular Volume 89.2 fl (80-94); Mean Platelet Volume 7.6 fl (7.4-10.4); Monocytes # 0.5 K/mm3 (0.1-1.0); Monocytes % 6.2 % (1.7-9.3); Neutrophils # 4.2 K/mm3 (1.8-7.8); Neutrophils % 50.5 % (37.0-80.0); Platelet Count 254 K/mm3 (142-424); Red Blood Count 4.93 M/mm3 (4.60-6.20); White Blood Count 8.3 K/mm3 (4.8-10.8)
[2018-09-04 08:58] LABS: Hemoglobin A1C 9.1 % (0.0-7.0)
[2018-09-04 09:42] LABS: Alanine Aminotransferase 31 U/L (12-78); Albumin Level 3.4 gm/dL (3.4-5.0); Albumin/Globulin Ratio 1.1 (1.1-1.8); Alkaline Phosphatase 96 U/L (46-116); Anion Gap 12.5 mEq/L (5-15); Aspartate Amino Transferase 7 U/L (15-37); Bilirubin,Total 0.2 mg/dL (0.2-1.0); Blood Urea Nitrogen 17 mg/dL (7-18); Calcium 8.5 mg/dL (8.5-10.1); Carbon Dioxide 27 mmol/L (21.0-32.0); Chloride 103 mmol/L (98-107); Chol/HDL Ratio 3.3 (1-3.5); Cholesterol 135 mg/dL (140-200); Creatinine,Serum 1.02 mg/dL (0.70-1.30); Estimated Glomerular Filt Rate 77 ml/min (>60); GFR (African American) 93 ML/MIN (>60); Glucose 210 mg/dL (74-106); HDL Cholesterol 41 mg/dL (27-67); LDL Cholesterol 64 mg/dL (0-130); Potassium 4.5 mmoL/L (3.5-5.1); Sodium 138 mmol/L (136-145); Thyroid Stimulating Hormone 2.71 uIU/ml (0.358-3.740); Total Protein,Serum 6.4 gm/dL (6.4-8.2); Triglycerides 148 mg/dL (30-200); VLDL Cholesterol 30 mg/dL (0-40)
== END ==
PROVIDERS: PCP Internal Medicine Adolescent Medicine; Visit Provider Internal Medicine Adolescent Medicine
DX: E11.9 Type 2 diabetes mellitus without complications (principal); E11.42 Type 2 diabetes mellitus with diabetic polyneuropathy; E03.9 Hypothyroidism, unspecified
CPT/HCPCS: 36415; 80053; 80061; 83036; 84443; 85025

== ENCOUNTER → 2019-04-08 07:17 | Outpatient (CLI) | payer MEDICARE, MEDICAID, SELFPAY ==
[2019-04-08 08:28] LABS: Basophils # 0.1 K/mm3 (0-0.2); Basophils % 0.8 % (0.1-2.0); Eosinophils # 0.2 K/mm3 (0.0-0.4); Eosinophils % 2.1 % (0.1-12.0); Hematocrit 47.2 % (42.0-52.0); Hemoglobin 15.6 g/dL (14.1-18.0); Lymphocytes # 3.7 K/mm3 (0.7-4.5); Lymphocytes % 46.2 % (10-50); Mean Corpuscular Hemoglobin 29.5 pg (27.0-31.2); Mean Corpuscular Volume 89.4 fl (80-94); Mean Platelet Volume 7.3 fl (7.4-10.4); Monocytes # 0.5 K/mm3 (0.1-1.0); Monocytes % 6.3 % (1.7-9.3); Neutrophils # 3.6 K/mm3 (1.8-7.8); Neutrophils % 44.6 % (37.0-80.0); Platelet Count 300 K/mm3 (142-424); Red Blood Count 5.28 M/mm3 (4.60-6.20); Red Cell Distribution Width 13.4 % (11.5-17.5); White Blood Count 8.1 K/mm3 (4.8-10.8)
[2019-04-08 08:35] LABS: Alanine Aminotransferase 37 U/L (12-78); Albumin Level 3.7 gm/dL (3.4-5.0); Albumin/Globulin Ratio 1.2 (1.1-1.8); Alkaline Phosphatase 91 U/L (46-116); Anion Gap 11.4 mEq/L (5-15); Aspartate Amino Transferase 8 U/L (15-37); Bilirubin,Total 0.3 mg/dL (0.2-1.0); Blood Urea Nitrogen 19 mg/dL (7-18); Calcium 8.4 mg/dL (8.5-10.1); Carbon Dioxide 29 mmol/L (21.0-32.0); Chloride 104 mmol/L (98-107); Chol/HDL Ratio 3.4 (1-3.5); Cholesterol 122 mg/dL (140-200); Creatinine,Serum 1.12 mg/dL (0.70-1.30); Estimated Glomerular Filt Rate 69 ml/min (>60); GFR (African American) 84 ML/MIN (>60); Globulin 3.1 gm/dl (1.3-3.2); Glucose 129 mg/dL (74-106); HDL Cholesterol 36 mg/dL (27-67); LDL Cholesterol 54 mg/dL (0-130); Potassium 4.4 mmoL/L (3.5-5.1); Sodium 140 mmol/L (136-145); Total Protein,Serum 6.8 gm/dL (6.4-8.2); Triglycerides 162 mg/dL (30-200); VLDL Cholesterol 32 mg/dL (0-40)
[2019-04-08 09:40] LABS: Hemoglobin A1C 7.1 % (0.0-7.0)
[2019-04-09 11:47] LABS: Vitamin B12 811 pg/mL (232-1245)
== END ==
PROVIDERS: Visit Provider Internal Medicine Adolescent Medicine
DX: E11.42 Type 2 diabetes mellitus with diabetic polyneuropathy (principal); Z79.4 Long term (current) use of insulin; Z79.84 Long term (current) use of oral hypoglycemic drugs
CPT/HCPCS: 36415; 80053; 80061; 82607; 83036; 85025

== ENCOUNTER → 2020-01-20 12:24 | Outpatient (CLI) | payer MEDICARE, SELFPAY ==
--- NOTE | 2020-01-20 12:29 | XR_ITS ---
PROCEDURE: XR KNEE RT 4V CLINICAL INDICATION: knee pain COMPARISON: XR KNEE RT 3V from 01/17/2020 FINDINGS: No fracture or dislocation. A 5 millimeter sclerotic focus in proximal medial tibia is likely a benign bone island. There is normal mineralization. The joint spaces are well-preserved. No significant degenerative/arthritic changes. No erosive changes evident. Other findings:There is lack of bony fusion at the anterior tibial tubercle and there is some overlying nonspecific soft tissue swelling anterior to the proximal tibia, knee joint, and inferior aspect of the patella. A 5 millimeter metallic foreign body is seen in the posterior medial soft tissues in the popliteal fossa. IMPRESSION: No acute bone findings. Anterior soft tissue swelling from the level of the inferior patella to the proximal tibia. Dictated by: Bharath Nascimento 01/20/2020 13:48 Electronically signed by Bharath Nascimento in [facility] 01/20/2020 13:48
== END ==
PROVIDERS: PCP Internal Medicine Adolescent Medicine; Visit Provider Orthopaedic Surgery
DX: M25.561 Pain in right knee (principal)
CPT/HCPCS: 73564

== ENCOUNTER → 2020-06-29 08:08 | Outpatient (CLI) | payer MEDICARE, SELFPAY ==
[2020-06-29 08:48] LABS: Basophils % 0.6 % (0.1-2.0); Eosinophils # 0.1 K/mm3 (0.0-0.4); Eosinophils % 1.9 % (0.1-12.0); Hematocrit 44.6 % (42.0-52.0); Hemoglobin 15.3 g/dL (14.1-18.0); Lymphocytes # 2.9 K/mm3 (0.7-4.5); Lymphocytes % 40.9 % (10-50); Mean Corpuscular HGB Conc 34.2 g/dL (31.8-35.4); Mean Corpuscular Hemoglobin 30.7 pg (27.0-31.2); Mean Corpuscular Volume 89.7 fl (80-94); Mean Platelet Volume 7.2 fl (7.4-10.4); Monocytes # 0.5 K/mm3 (0.1-1.0); Monocytes % 6.4 % (1.7-9.3); Neutrophils # 3.5 K/mm3 (1.8-7.8); Neutrophils % 50.2 % (37.0-80.0); Platelet Count 294 K/mm3 (142-424); Red Blood Count 4.97 M/mm3 (4.60-6.20); Red Cell Distribution Width 12.9 % (11.5-17.5)
[2020-06-29 09:03] LABS: Creatinine,Urine Random 108 mg/dL (Not Estab.)
[2020-06-29 09:07] LABS: Microalbumin/Creatinine Ratio 9.8
[2020-06-29 09:09] LABS: Chloride 102 mmol/L (98-107); Sodium 135 mmol/L (136-145)
[2020-06-29 09:11] LABS: Alanine Aminotransferase 29 U/L (12-78); Albumin Level 3.8 g/dl (3.5-5.0); Albumin/Globulin Ratio 1.5 (1.1-1.8); Alkaline Phosphatase 74 U/L (38-126); Aspartate Amino Transferase 22 U/L (17-59); Bilirubin,Total 0.3 mg/dl (0.2-1.3); Blood Urea Nitrogen 15 mg/dl (9-20); Carbon Dioxide 24 mmol/L (22.0-30.0); Estimated Glomerular Filt Rate 88 ml/min (>60); GFR (African American) 107 ML/MIN (>60); Globulin 2.5 g/dL (1.3-3.2); Total Protein,Serum 6.3 g/dl (6.3-8.2)
[2020-06-29 09:12] LABS: Calcium 8.9 mg/dl (8.4-10.2); Chol/HDL Ratio 2.6 (1-3.5); Cholesterol 126 mg/dl (140-200); Glucose 163 mg/dl (74-100); HDL Cholesterol 48 mg/dl (40-60); Triglycerides 175 mg/dl (30-150); VLDL Cholesterol 35 mg/dL (0-40)
[2020-06-29 09:23] LABS: Direct LDL Cholesterol 65.62 mg/dL (100-129)
[2020-06-29 09:41] LABS: Thyroid Stimulating Hormone 2.68 uIU/mL (0.465-4.68)
[2020-06-29 10:05] LABS: Hemoglobin A1C 8.7 % (4.0-6.0)
[2020-06-29 10:10] LABS: Prostate Specific Ag Screen 1.2 ng/ml (0.0-4.0)
== END ==
PROVIDERS: Visit Provider Nurse Practitioner Family
DX: E11.42 Type 2 diabetes mellitus with diabetic polyneuropathy (principal); I10 Essential (primary) hypertension; R79.89 Other specified abnormal findings of blood chemistry; J44.9 Chronic obstructive pulmonary disease, unspecified; R35.0 Frequency of micturition; Z79.4 Long term (current) use of insulin; Z12.5 Encounter for screening for malignant neoplasm of prostate
CPT/HCPCS: 36415; 80053; 80061; 82043; 82570; 83036; 84443; 85025; G0103

== ENCOUNTER → 2020-09-25 12:26 | Outpatient (CLI) | payer MEDICARE, SELFPAY | PROVIDERS: PCP Nurse Practitioner Family; Visit Provider Nurse Practitioner Family | DX: Z03.818 Encounter for observation for suspected exposure to other biological agents ruled out (principal); R05 Cough | CPT/HCPCS: U0003 ==

== ENCOUNTER 2020-10-15 23:42 | Emergency (ER) | payer MEDICARE, SELFPAY ==
[2020-10-15 23:43] VITALS: BP 137/55; PULSE 81; RESP 15; TEMP 37.2; O2SAT 98; BMI 34.2
[2020-10-16] VITALS: BP 118/67; PULSE 78; RESP 17; O2SAT 98
[2020-10-16 00:01] LABS: POC Glucose,Bedside 167 (70-110)
--- NOTE | 2020-10-16 00:21 | CT_ITS ---
PROCEDURE: CT HEAD/BRAIN WO CON CLINICAL INDICATION: Rule out CVA Blurred vision and dizziness COMPARISON: CT HDWO CT HEAD W/O CONTRAST from 05/02/2016 TECHNIQUE: Axial images obtained. All CT scans at the facility use one or more dose reduction, viz: automated exposure control, ma/kV adjustment per patient size (including targeted exams where dose is matched to indication, i.e. head), or iterative reconstruction technique. FINDINGS: No midline shift, mass effect, intracranial hemorrhage, hydrocephalus, or extra-axial fluid collection is evident. The calvarium has an unremarkable appearance. No mastoid effusion. Moderate mucosal thickening involves left maxillary sinus and ethmoid sinuses. IMPRESSION: 1. No acute intracranial findings. 2. Sinus disease Dictated by: Mati Tillman MD 10/16/2020 11:31 Mati Tillman MD in [facility] 10/16/2020 11:31
[2020-10-16 00:30] VITALS: BP 140/73; PULSE 76; RESP 17; O2SAT 98
--- NOTE | 2020-10-16 00:52 | PC.NURSE ---
speaking with MARY ALICE at 0050. [facility] reports negative head CT
[2020-10-16 00:58] LABS: Basophils # 0.1 K/mm3 (0-0.2); Basophils % 0.8 % (0.1-2.0); Eosinophils # 0.2 K/mm3 (0.0-0.4); Eosinophils % 1.9 % (0.1-12.0); Hematocrit 42.9 % (42.0-52.0); Hemoglobin 14.4 g/dL (14.1-18.0); Lymphocytes # 3.8 K/mm3 (0.7-4.5); Lymphocytes % 36.7 % (10-50); Mean Corpuscular HGB Conc 33.5 g/dL (31.8-35.4); Mean Corpuscular Volume 89.7 fl (80-94); Mean Platelet Volume 7.8 fl (7.4-10.4); Monocytes # 0.7 K/mm3 (0.1-1.0); Monocytes % 6.9 % (1.7-9.3); Neutrophils # 5.6 K/mm3 (1.8-7.8); Neutrophils % 53.8 % (37.0-80.0); Platelet Count 332 K/mm3 (142-424); Red Blood Count 4.79 M/mm3 (4.60-6.20); White Blood Count 10.3 K/mm3 (4.8-10.8)
[2020-10-16 01:00] VITALS: BP 123/69; PULSE 71; RESP 17; O2SAT 99
--- NOTE | 2020-10-16 01:01 | PC.NURSE ---
Snellen Vision test score of 20/200 in both
[2020-10-16 01:03] LABS: Alanine Aminotransferase 35 U/L (12-78); Albumin Level 3.9 g/dl (3.5-5.0); Albumin/Globulin Ratio 1.4 (1.1-1.8); Alkaline Phosphatase 85 U/L (38-126); Anion Gap 13.3 mEq/L (5-15); Aspartate Amino Transferase 24 U/L (17-59); Bilirubin,Total 0.2 mg/dl (0.2-1.3); Blood Urea Nitrogen 20 mg/dl (9-20); Calcium 9.1 mg/dl (8.4-10.2); Carbon Dioxide 25 mmol/L (22.0-30.0); Chloride 103 mmol/L (98-107); Creatinine Clearance Estimated 109 mL/min (50-200); Estimated Glomerular Filt Rate 70 ml/min (>60); GFR (African American) 85 ML/MIN (>60); Globulin 2.7 g/dL (1.3-3.2); Glucose 169 mg/dl (74-100); Potassium 4.3 mmoL/L (3.5-5.1); Sodium 137 mmol/L (136-145); Total Protein,Serum 6.6 g/dl (6.3-8.2)
[2020-10-16 01:06] LABS: Activated Partial Thrombo Time 24.3 seconds (23.6-34.0); INR 0.96 (0.9-1.1); Prothrombin Time 10.7 seconds (9.4-11.8)
--- NOTE | 2020-10-16 01:10 | PC.NURSE ---
calling [facility]
--- NOTE | 2020-10-16 01:13 | PC.NURSE ---
Addendum entered by Ras Bach, EMT 10/16/20 01:14: with [facility] stroke team Original Note: md will speak to dr. milner
--- NOTE | 2020-10-16 01:17 | PC.NURSE ---
md on phone with dr. milner at this time
--- NOTE | 2020-10-16 01:24 | PC.NURSE ---
accepted pt to the er.
--- NOTE | 2020-10-16 01:24 | HMH.EDEYEP ---
ED Disposition Clinical Impression: Occipital stroke Disposition: Xfer Short-Term Hosp Condition on Discharge: Good Referrals: Dustin Cosby MD [Primary Care Provider] - - Critical Care Critical Care Time: No Attestation: On 10/15/20, the high probability of a clinically significant, sudden or life threatening deterioration of the following system(s) required my full and direct attention, intervention and personal management. The time I documented below is in addition to time spent performing reported procedures but includes the following listed in this critical care notation. Medical Decision Making - Mamadou Inquiry Pt receiving controlled substance: No Vital Signs: 10/15/20 23:43 10/16/20 00:00 10/16/20 00:30 Temperature 98.9 F Temperature Source Oral Pulse Rate [Left Radial] 81 78 76 Respiratory Rate 15 17 17 Blood Pressure [Right Arm] 137/55 L 118/67 140/73 Blood Pressure Mean [Right Arm] 82 84 95 Blood Pressure Source [Right Arm] Automatic Cuff Automatic Cuff Automatic Cuff Blood Pressure Position [Right Arm] Sitting Sitting Sitting 02 Sat by Pulse Oximetry 98 98 98 Oxygen Delivery Method Room Air Room Air Room Air 10/16/20 01:00 Temperature Temperature Source Pulse Rate [Left Radial] 71 Respiratory Rate 17 Blood Pressure [Right Arm] 123/69 Blood Pressure Mean [Right Arm] 87 Blood Pressure Source [Right Arm] Automatic Cuff Blood Pressure Position [Right Arm] Supine 02 Sat by Pulse Oximetry 99 Oxygen Delivery Method Room Air - Lab Data Lab Results 10/15/20 23:51: POC Glucose 167 H 10/15/20 23:55: WBC 10.3, RBC 4.79, Hgb 14.4, Hct 42.9, MCV 89.7, MCH 30.0, MCHC 33.5, RDW 13.0, Plt Count 332, MPV 7.8, Neut % (Auto) 53.8, Lymph % (Auto) 36.7, [place] % (Auto) 6.9, Eos % (Auto) 1.9, Baso % (Auto) 0.8, Neut # (Auto) 5.6, Lymph # (Auto) 3.8, [place] # (Auto) 0.7, Eos # (Auto) 0.2, Baso # (Auto) 0.1 10/15/20 23:55: PT 10.7, INR 0.96, APTT 24.3 10/15/20 23:55: Sodium 137, Potassium 4.3, Chloride 103, Carbon Dioxide 25, Anion Gap 13.3, BUN 20, Creatinine 1.10, Estimated Creat Clear 109, Estimated GFR 70, Est GFR ( Amer) 85, Glucose 169 H, Calcium 9.1, Total Bilirubin 0.2, AST 24, ALT 35, Alkaline Phosphatase 85, Total Protein 6.6, Albumin 3.9, Globulin 2.7, Albumin/Globulin Ratio 1.4 10/15/20 23:55: Hemoglobin A1c 11.0 H D Result diagrams: 10/15/20 23:55 10/15/20 23:55 Orders (Tests/Meds): ORDERS Category Date Time Status CT head/brain wo con Stat Cat Scan 10/16/20 00:21 Taken - CT Data CT Scan: Head Time Received: 00:[address] Reviewed: Yes: I discussed the CT results w/the radiologist, I have viewed the radiologist's interpretation Preliminary Findings: Normal/NAD Medical Decision Narrative: 55-year-old male presents with blurred vision in bilateral eyes for 24 to 48 hours continuously. Patient has no history of stroke and is not on blood thinners. Has a mild posterior headache. CT of the head was ordered for stroke protocol. Exam was consistent with possible occipital stroke with bilateral hemianopsia. Patient is outside of a stroke alert window as his symptoms been going for more than 24 hours. Exam of the eyes is not concerning for any intraocular pathology. Having painful movement or pain of the eyes. Patient will be transferred to for further stroke evaluation. Eye Problem HPI - General Chief complaint: Eye Problems Stated complaint: Blood Sugar dropping;Blurry Vision Time Seen by Provider: 10/16/20 00:00 Mode of Arrival: Wheelchair Source of Information: Patient, Spouse Limitations: No Limitations Description of Symptoms (Recalled from ER Triage Doc. by RN): Pt c/o blurred vision starting and has progressively worsened. Pt states he has not been able to check his sugar d/t his meter breaking. Finger stick of 167 on arrival. Pt c/o nausea d/t vison blurring. - History of Present Illness HPI Narrative: 55-year-old man who presents with bl
--- NOTE | 2020-10-16 01:43 | PC.NURSE ---
Report called to DENNY Singh at at this time
[2020-10-16 02:02] VITALS: BP 145/76; PULSE 71; RESP 18; TEMP 36.7; O2SAT 98
== END 2020-10-16 02:13 | disposition short-term general hospital (02) ==
PROVIDERS: Emergency Provider Student in an Organized Health Care Education/Training Program; PCP Internal Medicine Adolescent Medicine
DX: I63.89 Other cerebral infarction (principal); H53.8 Other visual disturbances; E11.65 Type 2 diabetes mellitus with hyperglycemia; Z88.0 Allergy status to penicillin; Z87.891 Personal history of nicotine dependence; Z79.899 Other long term (current) drug therapy
CPT/HCPCS: 70450; 80053; 82962; 83036; 85025; 85610; 85730; 99284

== ENCOUNTER 2021-02-13 10:59 | Emergency (ER) | payer SELFPAY ==
[2021-02-13 11:10] VITALS: BP 140/70; PULSE 79; RESP 20; TEMP 36.9; O2SAT 97; BMI 39.1
--- NOTE | 2021-02-13 11:49 | HMH.EDUTC ---
[facility] [place] Impression: Nausea vomiting and diarrhea Disposition: Home, Self-Care Condition on Discharge: Good Instructions: Nausea and Vomiting-Adult, DI for Nausea -- Adult, Ondansetron, Diarrhea, DI for COVID-19 (Suspected or Confirmed ), Coronavirus Disease 2019 Additional Instructions: ? Avoid fruit juices, as these do not replace minerals and can actually increase diarrhea. ? Children and adults can use sports drinks to replenish electrolytes. Younger children and infants should use products formulated for children, like oral rehydration solutions. ? Eat food in small amounts and let your stomach recover. ? Get lots of rest. You may feel tired or weak. ? No greasy or fried foods for the next 24-48 hours BRAT diet Bananas Rice Apples and [place] ? Make sure to drink plenty of liquids ? Return if needed ? Straight to ER if any life threatening symptoms ? Zofran as prescribed ? You was given an outpatient order for diarrhea panel, please collect specimen and bring back to outpatient lab then call back to the [facility] or follow up with family doctor for results ? Follow up with family doctor in the next 48-72 hours if no improvement or any worsening of symptoms You were tested for today for COVID19 your test result should be back in the next 24-48 hours, you may call to the [facility] to see if your test results are back in the next 48 hours [phone] [facility] hours are 9am-9pm You was given a handout with instructions for Self Quarantine and Self isolation for while you wait on test results and what to do if they are positive If you are positive the Health Dept will be contacting you also Prescriptions: Ondansetron [Zofran 4mg ODT] 4 mg PO TIDP PRN #10 tab PRN Reason: Nausea Transmission Status: Pending to [facility] Referrals: Christina Deutsch APRN [Primary Care Provider] - As needed Forms: Work/School Release Time of Disposition: 11:57 Medical Decision Making - Mamadou Inquiry Pt receiving controlled substance: No Mamadou was queried for this patient: No Vital Signs: 02/13/21 11:10 Temperature 98.4 F Temperature Source Oral Pulse Rate [Right Brachial] 79 Respiratory Rate 20 Blood Pressure [Right Arm] 140/70 Blood Pressure Mean [Right Arm] 93 Blood Pressure Source [Right Arm] Automatic Cuff Blood Pressure Position [Right Arm] Sitting 02 Sat by Pulse Oximetry 97 Oxygen Delivery Method Room Air Orders (Tests/Meds): ORDERS Category Date Time Status Covid-19 Nasal PCR ([facility]) Routine Lab 02/13/21 11:30 Ordered [facility] [place] HPI - General Stated complaint: diaherrea, nausea, muscle pain, insomonia Time Seen by Provider: 02/13/21 11:49 Mode of Arrival: Ambulatory Source of Information: Patient Limitations: No Limitations Description of Symptoms (Recalled from Triage Doc. by RN): PATIENT C/O DIARRHEA, NAUSEA, BODY ACHES, HEADACHE, AND STOMACH ACHE SINCE FRIDAY HEENT Symptoms (Recalled from RN notes): No Resp Symptoms (Recalled from RN notes): No Skin Symptoms (Recalled from RN notes): No MS Symptoms (Recalled from RN notes): No Functional Status (Recalled from RN notes): WNL - History of Present Illness Provider Complaint: Patient state that he started feeling ill on Friday having upset stomach States that since then he has been having body aches, chills, nausea vomiting and diarreah State that vomting and diarrhea is a better today but still having some nausea and body aches. - Related Data Home Medications Medication Instructions Recorded Confirmed Albuterol Sulfate [Proventil-HFA 2 puffs IH Q4HP PRN 08/10/18 10/16/20 90mcg/puff Inh] Cyclobenzaprine HCl 10 mg PO TIDP PRN 08/10/18 10/16/20 [Cyclobenzaprine 10mg Tab*] Escitalopram Oxalate 10 mg PO DAILY 08/10/18 10/16/20 Fluticasone Propionate [Flonase 1 spray NS BIDP PRN 08/10/18 10/16/20 Allergy Relief NS] Insulin Glargine,Hum.rec.anlog 46 unit SQ HS 08/10/18 10/16/20 [Dana Ballesteros] Levothyroxine Sodium 25 mcg PO
[2021-02-13 11:51] VITALS: BP 140/70; PULSE 79; RESP 20; TEMP 36.9; O2SAT 97
== END 2021-02-13 12:10 | disposition home or self-care (01) ==
PROVIDERS: Emergency Provider Nurse Practitioner; PCP Nurse Practitioner Family
DX: Z20.822 Contact with and (suspected) exposure to COVID-19 (principal); R11.2 Nausea with vomiting, unspecified; E11.9 Type 2 diabetes mellitus without complications; E78.5 Hyperlipidemia, unspecified; I10 Essential (primary) hypertension; Z87.891 Personal history of nicotine dependence; Z88.0 Allergy status to penicillin; Z79.899 Other long term (current) drug therapy
CPT/HCPCS: G0463; 99202; U0003

== ENCOUNTER 2021-03-27 10:15 | Emergency (ER) | payer SELFPAY ==
[2021-03-27 10:40] VITALS: BP 139/78; PULSE 76; RESP 18; TEMP 37.1; O2SAT 100; BMI 32.8
--- NOTE | 2021-03-27 10:44 | HMH.EDUTC ---
[facility] [place] Clinical Impression: Encounter for laboratory testing for COVID-19 virus Disposition: Home, Self-Care Condition on Discharge: Good Instructions: DI for COVID-19 (Suspected or Confirmed ), Coronavirus Disease 2019, Preventing the Spread of Coronavirus Discharge Instructions Additional Instructions: *Monitor Temp, Over the counter Motrin or Tylenol as directed/as needed Tylenol every 4 hours and Motrin every 6 hours (as long as your family doctor has told you that you can take it) for fever or pain. and straight to ER if unable to lower temp less than 101.0 after medication given Follow up IMMEDIATELY for new or worsening symptoms or no Noticeable improvement over the next 48-72 hours. 911 for difficulty breathing or swallowing You were tested for today for COVID19 your test result should be back in the next 24-48 hours, you may call to the [facility] to see if your test results are back in the next 48 hours [phone] [facility] hours are 9am-9pm You was given a handout with instructions for Self Quarantine and Self isolation for while you wait on test results and what to do if they are positive If you are positive the Health Dept will be contacting you also Referrals: Christina Deutsch APRN [Primary Care Provider] - Forms: Work/School Release Time of Disposition: 10:58 Medical Decision Making - Mamadou Inquiry Pt receiving controlled substance: No Mamadou was queried for this patient: No Vital Signs: 03/27/21 10:40 Temperature 98.8 F Temperature Source Oral Pulse Rate [Right Brachial] 76 Respiratory Rate 18 Blood Pressure [Right Arm] 139/78 Blood Pressure Mean [Right Arm] 98 Blood Pressure Source [Right Arm] Automatic Cuff Blood Pressure Position [Right Arm] Sitting 02 Sat by Pulse Oximetry 100 Oxygen Delivery Method Room Air Orders (Tests/Meds): ORDERS Category Date Time Status Covid-19 Nasal PCR ([facility]) Routine Lab 03/27/21 10:35 [place] [facility] [place] - General Stated complaint: Covid Test Time Seen by Provider: 03/27/21 10:44 Mode of Arrival: Ambulatory Source of Information: Patient Limitations: No Limitations Description of Symptoms (Recalled from Triage Doc. by RN): Covid Test HEENT Symptoms (Recalled from RN notes): No Resp Symptoms (Recalled from RN notes): No Skin Symptoms (Recalled from RN notes): No MS Symptoms (Recalled from RN notes): No Functional Status (Recalled from RN notes): wnl - History of Present Illness Provider Complaint: Patient states that his work is having him get tested for COVID due to someone that he works beside tested positive for COVID States that he is not having any symptoms but has to get tested for work - Related Data Home Medications Medication Instructions Recorded Confirmed Albuterol Sulfate [Proventil-HFA 2 puffs IH Q4HP PRN 08/10/18 10/16/20 90mcg/puff Inh] Cyclobenzaprine HCl 10 mg PO TIDP PRN 08/10/18 10/16/20 [Cyclobenzaprine 10mg Tab*] Escitalopram Oxalate 10 mg PO DAILY 08/10/18 10/16/20 Fluticasone Propionate [Flonase 1 spray NS BIDP PRN 08/10/18 10/16/20 Allergy Relief NS] Insulin Glargine,Hum.rec.anlog 46 unit SQ HS 08/10/18 10/16/20 [Ronakumolly Ballesteros] Levothyroxine Sodium 25 mcg PO DAILY 08/10/18 10/16/20 [Levothyroxine 25mcg (0.025mg) Tab] Pregabalin [Pregabalin 50mg 50 mg PO BID 08/10/18 10/16/20 Capsule] Rosuvastatin Calcium 20 mg PO HS 08/10/18 10/16/20 Sitagliptin Phos/Metformin HCl 1 each PO BID 08/10/18 10/16/20 [Janumet 50-1,000 mg Tablet] Trazodone HCl 150 mg PO HS 08/10/18 10/16/20 fluticasone furoate 100 1 inh INHALATION DAILY 08/17/18 10/16/20 mcg-vilanterol 25 mcg/dose inhalation powder omeprazole 40 mg capsule,delayed 40 mg PO DAILY 08/17/18 10/16/20 release Previous Rx's Medication Instructions Recorded lisinopriL [Lisinopril 10mg Tab] 20 mg PO DAILY #30 tab 08/10/18 Ondansetron [Zofran 4mg ODT] 4 mg PO TIDP PRN #10 tab 02/13/21 Allergies Allergy/AdvReac Type
[2021-03-27 11:04] VITALS: BP 139/78; PULSE 76; RESP 18; TEMP 37.1; O2SAT 100
== END 2021-03-27 11:05 | disposition home or self-care (01) ==
PROVIDERS: Emergency Provider Nurse Practitioner; PCP Nurse Practitioner Family
DX: Z20.822 Contact with and (suspected) exposure to COVID-19 (principal); E11.9 Type 2 diabetes mellitus without complications; E78.5 Hyperlipidemia, unspecified; I10 Essential (primary) hypertension; Z87.891 Personal history of nicotine dependence; Z79.899 Other long term (current) drug therapy
CPT/HCPCS: 99202; G0463; U0003

== ENCOUNTER 2021-08-06 09:44 | Emergency (ER) | payer SELFPAY ==
[2021-08-06 09:45] VITALS: BP 121/85; PULSE 91; RESP 18; TEMP 36.9; O2SAT 98; BMI 34.1
--- NOTE | 2021-08-06 10:25 | HMH.EDUTC ---
[facility] [place] Clinical Impression: Exposure to COVID-19 virus Sinusitis Qualifiers: Sinusitis location: unspecified location Chronicity: unspecified Qualified Code(s): J32.9 - Chronic sinusitis, unspecified Disposition: Home, Self-Care Condition on Discharge: Good Instructions: Sinusitis, DI for Sinusitis Additional Instructions: *Monitor Temp, Over the counter Motrin or Tylenol as directed/as needed Tylenol every 4 hours and Motrin every 6 hours (as long as your family doctor has told you that you can take it) for fever or pain. and straight to ER if unable to lower temp less than 101.0 after medication given *Warm salt water gargles may help to soothe the throat *Throat Lozenges *Warm fluids like tea with honey may help to soothe the throat and nasal congestion *Sleep elevated *Humidifier/Vaporizer *Flonase 2 sprays in each nostril daily but be aware that it may take 2-3 days before you notice improvement Follow up IMMEDIATELY for new or worsening symptoms or no Noticeable improvement over the next 48-72 hours. 911 for difficulty breathing or swallowing You were tested for today for COVID19 your test result should be back in the next 24-48 hours, You was given instructions [facility] for your results if you do not have internet access you may call the [facility] You was given a handout with instructions for Self Quarantine and Self isolation for while you wait on test results and what to do if they are positive If you are positive the Health Dept will be contacting you also Make sure to take your Vitamins Vit. C Vit D and Zinc if you can take them Prescriptions: Doxycycline Monohydrate [Doxycycline Bryan 100mg Tab] 100 mg PO Q12 7 Days #14 tab Transmission Status: Pending to [id number] Fluticasone Propionate [Flonase 50mcg nasal spray 16gm] 1 spr NS DAILY #1 ml Transmission Status: [facility] Benzonatate [Tessalon Perle 100mg Cap*] 100 mg PO TID PRN #15 cap PRN Reason: Cough Transmission Status: [facility] Referrals: Christina Deutsch APRN [Primary Care Provider] - As needed Forms: Work/School Release Medical Decision Making - Mamadou Inquiry Pt receiving controlled substance: No Mamadou was queried for this patient: No Vital Signs: 08/06/21 09:45 Temperature 98.4 F Temperature Source Oral Pulse Rate [Right Brachial] 91 H Respiratory Rate 18 Blood Pressure [Right Arm] 121/85 Blood Pressure Mean [Right Arm] 97 Blood Pressure Source [Right Arm] Automatic Cuff Blood Pressure Position [Right Arm] Sitting 02 Sat by Pulse Oximetry 98 Oxygen Delivery Method Room Air Orders (Tests/Meds): ORDERS Category Date Time Status Covid-19 Nasal PCR ([facility]) Routine Lab 08/06/21 10:23 Ordered [facility] [place] - General Stated complaint: covid test/symptoms Time Seen by Provider: 08/06/21 10:25 Mode of Arrival: Ambulatory Source of Information: Patient Limitations: No Limitations Description of Symptoms (Recalled from Triage Doc. by RN): COVID TEST. C/O LOSS OF TASTE AND SMELL, COUGH, HEADACHE, BODY ACHES AND CHILLS HEENT Symptoms (Recalled from RN notes): Yes Resp Symptoms (Recalled from RN notes): No Skin Symptoms (Recalled from RN notes): No MS Symptoms (Recalled from RN notes): No Functional Status (Recalled from RN notes): WNL - History of Present Illness Provider Complaint: Patient states that he felt like a week or so ago he was getting a sinus infection States that since then he has continued to have sinus congestion and pressure States that he was around neice last week that tested positive for COVID and he was worried that he may have COVID too so he came in to get tested - Related Data Home Medications Medication Instructions Recorded Confirmed Albuterol Sulfate [Proventil-HFA 2 puffs IH Q4HP PRN 08/10/18 10/16/20 90mcg/puff Inh] Cyclobenzaprine HCl 10 mg PO TIDP PRN 08/10/18 10/16/20 [Cyclobenzaprine 10mg Tab*
[2021-08-06 10:37] VITALS: BP 121/85; PULSE 91; RESP 18; TEMP 36.9; O2SAT 98
--- NOTE | 2021-08-06 18:00 | PC.NURSE ---
INFORMED PATIENT THAT THEY ARE POSITIVE
== END 2021-08-06 10:45 | disposition home or self-care (01) ==
PROVIDERS: Emergency Provider Nurse Practitioner; PCP Nurse Practitioner Family
DX: J32.9 Chronic sinusitis, unspecified (principal); Z20.822 Contact with and (suspected) exposure to COVID-19
CPT/HCPCS: 99202; G0463; U0003

== ENCOUNTER → 2021-10-04 10:04 | Outpatient (CLI) | payer SELFPAY ==
[2021-10-04 10:38] LABS: Basophils # 0.1 K/mm3 (0-0.2); Eosinophils # 0.2 K/mm3 (0.0-0.4); Eosinophils % 1.8 % (0.1-12.0); Hematocrit 51.5 % (42.0-52.0); Hemoglobin 17.6 g/dL (14.1-18.0); Lymphocytes # 3.2 K/mm3 (0.7-4.5); Lymphocytes % 36.5 % (10-50); Mean Corpuscular HGB Conc 34.2 g/dL (31.8-35.4); Mean Corpuscular Hemoglobin 31.3 pg (27.0-31.2); Mean Corpuscular Volume 91.6 fl (80-94); Mean Platelet Volume 7.7 fl (7.4-10.4); Monocytes # 0.5 K/mm3 (0.1-1.0); Monocytes % 5.9 % (1.7-9.3); Neutrophils # 4.8 K/mm3 (1.8-7.8); Neutrophils % 54.8 % (37.0-80.0); Platelet Count 311 K/mm3 (142-424); Red Blood Count 5.62 M/mm3 (4.60-6.20); Red Cell Distribution Width 13.2 % (11.5-17.5); White Blood Count 8.7 K/mm3 (4.8-10.8)
[2021-10-04 10:40] LABS: Hemoglobin A1C 11.6 % (4.0-6.0)
[2021-10-04 11:44] LABS: Alanine Aminotransferase 24 U/L (12-78); Albumin Level 4.4 g/dl (3.5-5.0); Albumin/Globulin Ratio 1.5 (1.1-1.8); Alkaline Phosphatase 137 U/L (38-126); Anion Gap 17.1 mEq/L (5-15); Aspartate Amino Transferase 25 U/L (17-59); Bilirubin,Total 0.4 mg/dl (0.2-1.3); Blood Urea Nitrogen 19 mg/dl (9-20); Calcium 9.5 mg/dl (8.4-10.2); Carbon Dioxide 23 mmol/L (22.0-30.0); Chloride 98 mmol/L (98-107); Chol/HDL Ratio 8.6 (1-3.5); Cholesterol 259 mg/dl (140-200); Estimated Glomerular Filt Rate 101 ml/min (>60); GFR (African American) 122 ML/MIN (>60); Globulin 2.9 g/dL (1.3-3.2); Glucose 379 mg/dl (74-100); HDL Cholesterol 30 mg/dl (40-60); Potassium 5.1 mmoL/L (3.5-5.1); Sodium 133 mmol/L (136-145); Total Protein,Serum 7.3 g/dl (6.3-8.2)
[2021-10-04 11:55] LABS: Direct LDL Cholesterol 52.77 mg/dL (100-129)
[2021-10-04 12:15] LABS: Thyroid Stimulating Hormone 1.97 uIU/mL (0.465-4.68)
[2021-10-04 21:30] LABS: Triglycerides 1812 mg/dl (30-150)
== END ==
PROVIDERS: Visit Provider Nurse Practitioner Family
DX: E11.42 Type 2 diabetes mellitus with diabetic polyneuropathy (principal); Z79.84 Long term (current) use of oral hypoglycemic drugs; Z79.899 Other long term (current) drug therapy
CPT/HCPCS: 36415; 80053; 80061; 83036; 84443; 85025

== ENCOUNTER → 2021-11-23 09:55 | Outpatient (CLI) | payer OTHER, SELFPAY ==
--- NOTE | 2021-11-23 09:58 | CT_ITS ---
PROCEDURE: CT LUNG SCREENING CLINICAL INDICATION: H/O NICOTINE DEPENDENCE COMPARISON: No exams were available for comparison TECHNIQUE: The exam was performed on a GE Light Speed [address] scanner using 2.90 mGy CTDI. A low dose helical CT CHEST was performed on a multi-detector scanner. All CT scans at the facility use one or more dose reduction, viz: automated exposure control, ma/kV adjustment per patient size (including targeted exams where dose is matched to indication, i.e. head), or iterative reconstruction technique. The LDCT was performed in a facility that meets the criteria for the screening program. Data regarding this exam was submitted to ACR which is an approved registry. The order for this exam indicates that it came as a result of a lung cancer screening counseling shard decision-making visit that included all the elements required of such a visit including smoking cessation. The radiologist interpreting this exam meets the CMS criteria for the LDCT lung cancer screening program. The exam is reported using the Lung-RADS classification scale and reported to the ACR registry. NOTE: This study was performed for the specific purposes of lung cancer screening and is not an alternative to diagnostic chest CT. RADIATION DOSE: CTDI vol(CT dose Index-volume) = 2.90mG DLP (Dose Length Product) = 106.55 mGcm FINDINGS: COPD changes. 3 mm calcified nodule right middle lobe. No suspicious nodules. Calcified granuloma lingula OTHER FINDINGS: Mild gynecomastia IMPRESSION: Lung-RADS Category 2 Benign Appearance or Behavior Follow-up: Continue annual screening with LDCT in 12 months Dictated by: Mati Tillman MD 11/30/2021 11:42 Mati Tillman MD in [place] 11/30/2021 11:42
== END ==
PROVIDERS: PCP Nurse Practitioner Family; Visit Provider Nurse Practitioner Family
DX: Z87.891 Personal history of nicotine dependence (principal); Z12.2 Encounter for screening for malignant neoplasm of respiratory organs
CPT/HCPCS: 71271

== ENCOUNTER 2024-02-05 11:13 | Outpatient (CLI) | payer MEDICARE, SELFPAY ==
[2024-02-05 11:20] LABS: Microscopic, Urine URINE MICROSCOPIC (MICROSCOPIC)
[2024-02-05 11:49] LABS: Basophils % 0.6 % (0.1-2.0); Eosinophils # 0.1 K/mm3 (0.0-0.4); Eosinophils % 1.8 % (0.1-12.0); Hematocrit 46.8 % (42.0-52.0); Hemoglobin 15.6 g/dL (14.1-18.0); Lymphocytes # 2.7 K/mm3 (0.7-4.5); Lymphocytes % 36.3 % (10-50); Mean Corpuscular HGB Conc 33.4 g/dL (31.8-35.4); Mean Corpuscular Hemoglobin 30.7 pg (27.0-31.2); Mean Corpuscular Volume 91.9 fl (80-94); Mean Platelet Volume 6.9 fl (7.4-10.4); Monocytes # 0.5 K/mm3 (0.1-1.0); Neutrophils # 4.2 K/mm3 (1.8-7.8); Neutrophils % 55.3 % (37.0-80.0); Platelet Count 282 K/mm3 (142-424); Red Blood Count 5.09 M/mm3 (4.60-6.20); Red Cell Distribution Width 13.5 % (11.5-17.5); White Blood Count 7.5 K/mm3 (4.8-10.8)
[2024-02-05 11:55] LABS: Appearance,Urine CLEAR (Clear); Bilirubin,Urine Negative (Negative); Blood, Urine Negative (Negative); Color,Urine YELLOW (Yellow); Glucose,Urine (UA) 3+ (Negative); Ketones,Urine 1+ (Negative); Leukocyte Esterase,Urine Negative (Negative); Nitrate,Urine Negative (Negative); Protein,Urine Negative (Negative); Specific Gravity, Urine 1.015 (1.005-1.030); Urobilinogen,Urine 0.2 EU/dl (0.2)
[2024-02-05 12:06] LABS: Chloride 107 mmol/L (98-107); Potassium 4.5 mmoL/L (3.5-5.1); Sodium 134 mmol/L (136-145)
[2024-02-05 12:09] LABS: Alanine Aminotransferase 41 U/L (12-78); Albumin Level 4.2 g/dl (3.5-5.0); Albumin/Globulin Ratio 1.6 (1.1-1.8); Alkaline Phosphatase 99 U/L (38-126); Anion Gap 11.5 mEq/L (5-15); Aspartate Amino Transferase 28 U/L (17-59); Bilirubin,Total 0.4 mg/dl (0.2-1.3); Blood Urea Nitrogen 21 mg/dl (9-20); Calcium 9.3 mg/dl (8.4-10.2); Carbon Dioxide 20 mmol/L (22.0-30.0); Estimated Glomerular Filt Rate 77 ml/min (>60); GFR (African American) 94 ML/MIN (>60); Globulin 2.6 g/dL (1.3-3.2); Glucose 254 mg/dl (74-100); Total Protein,Serum 6.8 g/dl (6.3-8.2)
[2024-02-05 12:18] LABS: Creatinine,Urine Random 48 mg/dL (Not Estab.); Microalbumin < 6.000 mg/L (0-16.7)
[2024-02-05 12:40] LABS: Thyroid Stimulating Hormone 2.53 uIU/mL (0.465-4.68)
[2024-02-05 13:04] LABS: Hemoglobin A1C 12.9 % (4.0-6.0)
[2024-02-05 13:12] LABS: Prostate Specific Ag Screen 1.4 ng/ml (0.0-4.0)
[2024-02-05 13:32] LABS: Bacteria,Urine Trace /lpf; WBC,Urine Occasional #/hpf (0-3)
== END 2024-02-05 23:59 ==
LOC: LAB 11:16
PROVIDERS: PCP Nurse Practitioner Family; Visit Provider Nurse Practitioner Family
DX: R35.0 Frequency of micturition (principal); E11.65 Type 2 diabetes mellitus with hyperglycemia; R79.89 Other specified abnormal findings of blood chemistry; Z12.5 Encounter for screening for malignant neoplasm of prostate
CPT/HCPCS: 36415; 80053; 81001; 82043; 82570; 83036; 84443; 85025; G0103

== ENCOUNTER 2024-03-04 09:41 | Outpatient (CLI) | payer MEDICARE, SELFPAY ==
--- NOTE | 2024-03-04 09:47 | XR_ITS ---
FINAL REPORT CLINICAL HISTORY: RT SHOULDER PAIN for 2-3 years COMPARISON: None FINDINGS: RIGHT SHOULDER: 3 views of the right shoulder were obtained. There is no acute fracture or dislocation. There is mild elevation of the distal clavicle. Mild AC separation is not excluded. There is mild glenohumeral joint degenerative change. There is no soft tissue abnormality. IMPRESSION: Possible mild AC separation. Mild glenohumeral joint degenerative change. No acute bony abnormality. Reviewed, Interpreted and Dictated by Titus Beach III, MD Transcribed by Isabell Lei Authenticated and . [facility]
== END 2024-03-04 23:59 ==
LOC: RAD 09:43
PROVIDERS: PCP Nurse Practitioner Family; Visit Provider Nurse Practitioner Family
DX: M25.511 Pain in right shoulder (principal); G89.29 Other chronic pain
CPT/HCPCS: 73030

== ENCOUNTER 2024-04-23 08:34 | Outpatient (CLI) | payer MEDICARE, SELFPAY ==
--- NOTE | 2024-04-23 08:35 | MR_ITS ---
FINAL REPORT CLINICAL HISTORY: Rt Shoulder Pain FINDINGS: Multi planar MR imaging of the right shoulder was performed after the intra-articular injection of dilute gadolinium contrast. Contrast is seen throughout the shoulder joint space. There is a defect at the anterior insertion of the distal supraspinatus tendon consistent with partial tear seen on images 7 and 8 of series 7. There is no abnormal communication between the joint space and the subacromial/subdeltoid bursa. There is mild irregularity of the anterior margin of the labrum consistent with tear. Posterior labrum intact. The biceps tendon appears intact. There are mild hypertrophic changes of the acromioclavicular joint. IMPRESSION: Partial insertional tear of the distal supraspinatus tendon. Anterior labral tear. Reviewed, Interpreted and Dictated by Dell Hooks MD Transcribed by Gloria Sharpe Authenticated and . [facility]
--- NOTE | 2024-04-23 08:35 | IR_ITS ---
FINAL REPORT CLINICAL HISTORY: Rt Shoulder Pain ft 0:26 dap 4.14 FINDINGS: RIGHT SHOULDER ARTHROGRAM HISTORY: Chronic right shoulder pain. ATTENDING PHYSICIAN: Dr. Hooks. PHYSICIAN ASSISTNAT: Laura Tate PA-C. PROCEDURE: Informed consent was obtained from the patient. Timeout procedure was performed prior to beginning. Patient was placed supine on the fluoroscopy table. Fluoroscopy was utilized to localize the right shoulder joint space. Skin was marked appropriately. Patient was prepped and draped in the usual sterile fashion over the right shoulder. Skin was anesthetized with 1% lidocaine. Access to the joint space was obtained using a 3-1/2 inch spinal needle. Small amount of Isovue contrast was injected to confirm needle placement. This was confirmed. Subsequently, approximately 20 mL of dilute gadolinium were gently injected into the joint space. The patient tolerated the procedure well and left the department in good condition. Total number of images: 2. radiation exposure in DAP:4.14 uGym2 Fluoroscopy time: 0.26 minutes IMPRESSION: Technically successful fluoroscopic guided right shoulder injection for MR arthrogram. Please see MRI report. Reviewed, Interpreted and Dictated by Dell Hooks MD Transcribed by Laura Tate PA-C Authenticated and [facility]
[2024-04-23] MEDS: LIDOCAINE 1% 10ML MDV IJ (09:51)
[2024-04-23] MEDS: SODIUM CHLORIDE 0.9% 10ML SYR (RAD ONLY) 10 ML IV (09:51)
== END 2024-04-23 23:59 | disposition home or self-care (01) ==
LOC: RAD 08:35
PROVIDERS: PCP Nurse Practitioner Family; Visit Provider Orthopaedic Surgery
DX: M25.511 Pain in right shoulder (principal)
CPT/HCPCS: 73040; 73222

== ENCOUNTER 2024-09-08 09:48 | Outpatient (CLI) | payer MEDICARE, SELFPAY ==
--- NOTE | 2024-09-08 09:54 | US_ITS ---
FINAL REPORT CLINICAL HISTORY: previous smoker, HTN, DM, bilateral claudication, bilateral rest pain COMPARISON: None FINDINGS: ANKLE-BRACHIAL PRESSURE INDICES Pressure indices are as follows: RIGHT LOWER EXTREMITY: Ankle-brachial pressure index: 1.13 Comments: Normal LEFT LOWER EXTREMITY: Ankle-brachial pressure index: 1.02 Comments: Normal CONCLUSION: No evidence of significant obstructive peripheral vascular disease of the lower extremities Reviewed, Interpreted and Dictated by Titus Beach III, MD Transcribed by Lyn Hughse Authenticated and [facility]
== END 2024-09-08 23:59 | disposition home or self-care (01) ==
LOC: RT 09:50
PROVIDERS: PCP Nurse Practitioner Family; Visit Provider Nurse Practitioner Family
DX: I70.213 Atherosclerosis of native arteries of extremities with intermittent claudication, bilateral legs (principal)
CPT/HCPCS: 93923

== ENCOUNTER 2024-09-16 09:36 | Outpatient (CLI) | payer MEDICARE, SELFPAY ==
--- NOTE | 2024-09-16 09:40 | CT_ITS ---
FINAL REPORT TECHNIQUE: Thin section axial images were obtained from the lung apices to the upper abdomen by computed tomography. Reformatted images were obtained and reviewed. This study was performed with techniques to keep radiation doses al low as reasonably achievable (ALARA). Individualized dose reduction techniques using automated exposure control or adjustment of mA and/or kV according to the patient's size were employed. CLINICAL HISTORY: SCREENING PREVIOUS SMOKER 2 1/2 PPD X 20 YEARS , QUIT 10 YEARS AGO COMPARISON: None FINDINGS: CHEST CT LOW DOSE 59-year-old male, former smoker who quit 10 years ago, 67-mrge-pdlh history. CTDI vol (mGy): 2.9 DLP (mGy-cm): 110.98 There is no axillary adenopathy. There is no mediastinal or hilar mass or adenopathy. The heart is normal in size. There is no pericardial or pleural effusion. Lung window images demonstrate 4 mm posterior right lower lobe nodule, noncalcified, best seen on image #53 of series 4.. Limited images of the upper abdomen are unremarkable. IMPRESSION: Lung-RADS category 2. Recommend 12 month follow up low dose chest CT. Reviewed, Interpreted and Dictated by Dell Hooks MD Transcribed by Lyn Hughes Authenticated and [facility]
--- NOTE | 2024-09-16 10:00 | CA_ITS ---
APPROVED REPORT EXAM: Comprehensive 2D, Doppler, and color-flow Echocardiogram Farm Boss: Lynnette Connor RVT Ht: 5 ft 7 in Wt: 218lbs BSA: 2.10 BP: 123/89 mmHg Indications: HTN,HLD,DM,EX SMOKER M-Mode Dimensions RVDd 3.63 cm (0.9-2.6) LA Diam 3.77 cm (1.9-4.0) LVDd 5.29 cm (3.5-5.7) LVDs 3.19 cm (3.5-5.7) IVSd 0.64 cm (0.6-1.1) PWd 0.69 cm (0.6-1.1) EF (Teich) 69.90% FS 39.70% EDV (Teich) 134.80 mL TAPSE 2.37 (<1.7) ESV (Teich) 40.60 mL LV Diastology E Decel Time 220 (160-240 msec) E/A Ratio 1.1 Aortic Valve DYLLAN Index 1.64 cm2/m2 AoV Peak Boo. 102.0 (50-130 cm/s) AO Peak GR. 4.10 mmHg AO Mean GR. 2.20 (<5 mmHg) AO VTI 21.5 (18-25 cm) DYLLAN (VTI) 3.52 (2.5-4.5 cm2) Mitral Valve MV E Max Boo. 74.0 (40-130 cm/s) MV A Velocity 68.0 (40-130 cm/s) E/A Ratio 1.09 MV PHT 64.0 ms Pulmonary Valve PV Peak Velocity 82.0 (50-150 cm/s) Left Ventricle The left ventricle is normal size. The left ventricular systolic function is normal. The left ventricular ejection fraction is within the normal range. Proximal septal thickening is noted. There is normal LV segmental wall motion. The left ventricular diastolic function is normal. LVEF is 55%. Right Ventricle Right ventricle is mildly dilated. The right ventricular systolic function is normal. Atria The left atrium size is normal. The right atrium size is normal. There is no Doppler evidence of interatrial shunt. The aortic valve is mildly thickened. Aortic Valve There is no aortic valvular stenosis. No aortic regurgitation is present. Mitral Valve The mitral valve is normal in structure. No evidence of mitral valve stenosis. Trace mitral regurgitation. Tricuspid Valve Tricuspid valve leaflets are thin and pliable. Trace tricuspid regurgitation. There is insufficient TR jet to estimate RVSP. Pulmonic Valve The pulmonary valve is normal in structure. Trace pulmonic regurgitation. Great Vessels The aortic root is normal in size. The ascending aorta is normal in size. The IVC is dilated, but collapses > 50% with respirophasic variation. RA pressure is estimated at 8 mmHg. Pericardium There is no pericardial effusion. Other Information Study Quality: Fair Conclusion Normal biventricular systolic function. Mild RV dilation. No significant valvular stenosis or regurgitation. Electronically signed by : Aury Diane MD 09/21/2024 11:54:24
== END 2024-09-16 23:59 | disposition home or self-care (01) ==
PROVIDERS: PCP Nurse Practitioner Family; Visit Provider Nurse Practitioner Family
DX: I51.7 Cardiomegaly (principal); I73.9 Peripheral vascular disease, unspecified; Z87.891 Personal history of nicotine dependence
CPT/HCPCS: 71271; 93306

== ENCOUNTER 2025-05-09 14:46 | Emergency (ER) | payer MEDICARE, SELFPAY ==
[2025-05-09 14:57] VITALS: BP 154/89; PULSE 91; RESP 15; TEMP 36.6; O2SAT 98; BMI 32.5
--- NOTE | 2025-05-09 15:05 | XR_ITS ---
FINAL REPORT CLINICAL HISTORY: Crush injury of left hand, digits, wrist, forearm FINDINGS: LEFT HAND Three views demonstrate no acute fracture or dislocation. The visualized joint spaces are normally aligned. The soft tissues are unremarkable. IMPRESSION: No acute process. Reviewed, Interpreted and Dictated by Dell Hooks MD Transcribed by Gloria Sharpe Authenticated and [facility]
--- NOTE | 2025-05-09 15:05 | XR_ITS ---
FINAL REPORT CLINICAL HISTORY: Crush injury left hand, digits, wrist and forearm FINDINGS: LEFT WRIST Three views demonstrate no acute fracture or dislocation. The visualized joint spaces are normally aligned. The soft tissues are unremarkable. IMPRESSION: No acute bony abnormality. Reviewed, Interpreted and Dictated by Dell Hooks MD Transcribed by Gloria Sharpe Authenticated and . [facility]
--- NOTE | 2025-05-09 15:06 | XR_ITS ---
FINAL REPORT CLINICAL HISTORY: Crush injury left hand, digits, wrist and forearm FINDINGS: 2 views of the left forearm were obtained. There is no acute fracture or dislocation. The joints are intact. There are no soft tissue abnormalities. IMPRESSION: No acute process. Reviewed, Interpreted and Dictated by Dell Hooks MD Transcribed by Gloria Sharpe Authenticated and [facility]
--- NOTE | 2025-05-09 15:10 | ED_ITS ---
Discharge Plan Disposition Patient Disposition: Home, Self-Care Condition: Good Prescriptions Prescriptions: No Action Breo Ellipta 100-25 mcg/dose blister with device 1 inh INHALATION DAILY omeprazole 40 mg capsule,delayed release(DR/EC) 40 mg PO DAILY cyclobenzaprine 10 MG tablet 10 mg PO TIDP PRN (Reason: MUSCLE SPASMS) escitalopram oxalate 10 MG tablet 10 mg PO DAILY insulin glargine U-300 conc 300 UNIT/ML insulin pen 60 unit SQ HS pregabalin 50 MG capsule 50 mg PO BID albuterol sulfate 200 PUFFS HFA aerosol inhaler 2 puffs inhalation Q4HP PRN (Reason: Shortness Of Breath) lisinopril 10 MG tablet 20 mg PO DAILY Qty: 30 0RF Ozempic 2 mg/dose (8 mg/3 mL) pen injector 2 mg SQ WEEKLY Patient Comments: INJECT 2 MG SUBCUTANEOUSLY ONCE WEEKLY Referrals Follow up/Referrals: Christina Deutsch APRN [Primary Care Provider, Medical] - See instructions Activity Restrictions/Add. Instructions Additional Instructions/Restrictions: Please return to the emergency department with any worsening signs or symptoms, recommend ice compression, elevation, ibuprofen and Tylenol as needed for symptomatic relief. Please follow-up with your family doctor. Clinical Impressions Clinical Impression: Sprain of hand, left, Sprain and strain of left wrist Instructions Patient Instructions: DI for Wrist Strain Print Language Print Language: Bangladeshi Discharge ED Provider: Bernard Cole General Adult HPI <CATRACHITA Gibbs - Last Filed: 05/09/25 15:57> General Chief complaint: Extremity Injury, Upper Stated complaint: AO 05/09/25. Fence fell on L wrist, pain Time Seen by Provider: 05/09/25 15:01 Mode of Arrival: Ambulatory Source of Information: Patient Description of Symptoms (Recalled from ER Triage Doc. by RN): patient states he dropped a box of fencing on his left forearm around 0730 this morning and is now having pain in arm and left hand. Patient states he took 800 mg Ibuprofen at 0800 and it provided some relief. History of Present Illness HPI narrative: 59-year-old male presents emergency department with left wrist/forearm and hand pain as well as digit pain after a crush injury this morning, patient states he was moving some boxes of fencing , the weighed approximately 60-100 pounds. This injury occurred around 7:30 AM this morning, took 800 mg ibuprofen around 8 AM and did provide some relief. Denies any fever chills chest pain shortness of breath nausea vomiting constipation diarrhea no abdominal pain, no urinary type symptomatology, patient denies any numbness or tingling no upper or lower extremity weakness, patient is a former smoker, alcohol or illicit drug use, has other past medical history consistent with T2DM, hypertension, COPD, hypothyroidism, diabetic polyneuropathy, diastolic CHF, data deficient history of occipital stroke. Triage vitals unremarkable. Related Data Home Medications ?Medication ?Instructions ?Recorded ?Confirmed albuterol sulfate 90 mcg/actuation 2 puffs inhalation Q4HP PRN 08/10/18 05/09/25 aerosol inhaler Shortness Of Breath cyclobenzaprine 10 mg tablet 10 mg PO TIDP PRN MUSCLE SPASMS 08/10/18 05/09/25 escitalopram oxalate 10 mg tablet 10 mg PO DAILY mood 08/10/18 05/09/25 insulin glargine U-300 conc 300 60 unit SQ HS Diabetes 08/10/18 05/09/25 unit/mL (1.5 mL) subcutaneous pen pregabalin 50 mg capsule 50 mg PO BID Pain 08/10/18 0 05/09/25 fluticasone furoate 100 1 inh inhalation DAILY COPD 08/17/18 05/09/25 mcg-vilanterol 25 mcg/dose inhalation powder (Breo Ellipta) omeprazole 40 mg capsule,delayed 40 mg PO DAILY GERD 0 08/17/18 05/09/25 release semaglutide 2 mg/dose (8 mg/3 mL) 2 mg SQ WEEKLY 05/0905/09/25 subcutaneous pen injector (Ozempic) Previous Rx's ?Medication ?Instructions ?Recorded lisinopril 10 mg tablet 20 mg (2 x 10 mg) PO DAILY 0 08/10/18 Hypertension #30 tabs Allergies Allergy/AdvReac Type Severity Reaction Status Date / Time penicillin G (PENICILLIN G) Allergy Unknown Hives Verified 05/09/25 15:03 [facility] <CATRACHITA Gibbs - Last Filed: 05/09/25 15:57> [facility] Disclaimer: The information contained in this section may have been updated after the patient was seen, as this information can be updated by other users. Social History Smoking Status: Never smoker alcohol intake: never substance use type: marijuana current occupational status: other Travel in the last 8 weeks?: None household members: spouse housing: house current occupation: [employer] current occupational exposures/hazards: No caffeine: Yes Have you lived/traveled outside [place] in past 30 days?: No Contact w/someone who lives/traveled outside US past 30 days?: No Exposure to someone with infectious disease in past 14 days?: No Do you have a fever (greater than 100.4 F or 38 C)?: No Have you tested positive for COVID-19?: No Exposed to someone with COVID-19 in past 14 days?: No Do you have a sore throat?: No Do you have a cough?: No Do you have any weakness?: No Do you have any diarrhea?: No Are you experiencing any unusual bleeding?: No Do you have any muscle aches/pain?: No Do you have any abdominal pain?: No Are you experiencing loss of taste or smell?: No Other Medical History Have you received the Flu Vaccine for this season: Yes Have you received the Pneumonia Vaccine: Yes <CATRACHITA Gibbs - Last Filed: 05/09/25 15:57> ROS Obtained: Yes All systems reviewed & no additional complaints except as documented Physical Exam <CATRACHITA Gibbs - Last Filed: 05/09/25 15:57> General General appearance: alert and in no apparent distress Head Head exam: atraumatic and normocephalic Eye Eye exam: Present PERRL and EOMI ENT ENT exam: Present mucous membranes moist Neck Neck exam: Present normal inspection Chest Chest inspection: Present normal inspection and symmetric chest wall rise Respiratory Respiratory exam: Present normal lung sounds bilaterally; Absent respiratory distress Cardiovascular Cardiovascular exam: Present regular rate and normal rhythm Abdominal Exam Abdominal exam: Present soft; Absent tenderness Extremities Exam Extremities exam: Present normal inspection, full ROM, tenderness and other (There is mild pain to palpation to the dorsal and volar aspect of the patient's wrist, as well as the carpal bones, patient moves extremities to command, has good finger opposition, but does have some pain limited range of motion, otherwise neurovascular intact. No obvious traumatic injury, no jose de jesus); Absent edema or joint swelling Neurological Exam Neurological exam: Present alert and oriented X3 Psychiatric Psychiatric exam: Present normal affect Skin Skin exam: Present warm and dry Medical Decision Making <CATRACHITA Gibbs - Last Filed: 05/09/25 15:57> Medical Records Medical records reviewed: Yes I reviewed the patient's medical records. Screening: Per USPSTF and CDC recommendations, given the prevalence of disease in our region, it is our hospital?s policy to screen for HIV and viral Hepatitis for all patients aged 18 and over and those with ongoing risk factors. Mamadou Inquiry Pt receiving controlled substance: No Vital Signs: 05/09/25 14:57 05/09/25 16:25 Temperature 97.8 F 98.1 F Temperature Source Oral Oral Pulse Rate 86 Pulse Rate [Right Radial] 91 H Respiratory Rate 15 18 Blood Pressure 135/81 Blood Pressure [Right Arm] 154/89 H Blood Pressure Mean [Right Arm] 110 Blood Pressure Source Automatic Cuff Blood Pressure Source [Right Arm] Automatic Cuff Blood Pressure Position Sitting Blood Pressure Position [Right Arm] Sitting 02 Sat by Pulse Oximetry 98 Oxygen Delivery Method Room Air Room Air Orders (Tests/Meds): ED MEDICATIONS Discontinued Medications Generic Name Dose Route Start Last Admin Trade Name Freq PRN Reason Stop Dose Admin Ibuprofen 400 mg 05/09/25 15:08 05/09/25 15:21 Ibuprofen 400 Mg Tablet PO 05/09/25 15:09 400 mg ONCE ONE Administration ORDERS Category Date Time Status XR forearm LT 2V Stat Exams 05/09/25 15:06 Completed XR hand LT min 3V Stat Exams 05/09/25 15:05 Completed XR wrist LT min 3V Stat Exams 05/09/25 15:05 Completed Medical Decision Narrative: 59-year-old male presents the emergency department with a left hand, wrist, digit and forearm crush injury, differential diagnosis to include but not limited to wrist sprain/strain, hand sprain/strain, carpal bone fracture, phalanx fracture, wrist fracture among others. I discussed patient case with attending physician saw and examined this patient as well. Obtain x-rays of the forearm, hand, and wrist on the left, will give 400 mg p.o. ibuprofen for pain. I along with the attending physician independently reviewed and interpreted the patient's x-rays of his hand, wrist and forearm, no acute bony abnormality, no obvious fracture or deformity. Patient is cleared to be discharged home to self-care, most likely sprain/strain or soft tissue injury, recommend ibuprofen Tylenol as needed for pain relief, patient has good range of motion otherwise neurovascular intact. Will call patient with any different x-ray results, p atient and family voiced understanding and agreed with current treatment plan/discharge plan, recommend rest ice compression elevation. Patient will follow-up PCP as directed. Patient was given strict ED return precautions. <Cayden Oneill MD - Last Filed: 05/10/25 09:11> Vital Signs: 05/09/25 14:57 05/09/25 16:25 Temperature 97.8 F 98.1 F Temperature Source Oral Oral Pulse Rate 86 Pulse Rate [Right Radial] 91 H Respiratory Rate 15 18 Blood Pressure 135/81 Blood Pressure [Right Arm] 154/89 H Blood Pressure Mean [Right Arm] 110 Blood Pressure Source Automatic Cuff Blood Pressure Source [Right Arm] Automatic Cuff Blood Pressure Position Sitting Blood Pressure Position [Right Arm] Sitting 02 Sat by Pulse Oximetry 98 Oxygen Delivery Method Room Air Room Air Orders (Tests/Meds): ED MEDICATIONS Discontinued Medications Generic Name Dose Route Start Last Admin Trade Name Georgiana PRN Reason Stop Dose Admin Ibuprofen 400 mg 05/09/25 15:08 05/09/25 15:21 Ibuprofen 400 Mg Tablet PO 05/09/25 15:09 400 mg ONCE ONE Administration ORDERS Category Date Time Status XR forearm LT 2V Stat Exams 05/09/25 15:06 Completed XR hand LT min 3V Stat Exams 05/09/25 15:05 Completed XR wrist LT min 3V Stat Exams 05/09/25 15:05 Completed Medical Decision Narrative: 59-year-old male presents the emergency department with a left hand, wrist, digit and forearm crush injury, differential diagnosis to include but not limited to wrist sprain/strain, hand sprain/strain, carpal bone fracture, phalanx fracture, wrist fracture among others. I discussed patient case with attending physician saw and examined this patient as well. Obtain x-rays of the forearm, hand, and wrist on the left, will give 400 mg p.o. ibuprofen for pain. I along with the attending physician independently reviewed and interpreted the patient's x-rays of his hand, wrist and forearm, no acute bony abnormality, no obvious fracture or deformity. Patient is cleared to be discharged home to self-care, most likely sprain/strain or soft tissue injury, recommend ibuprofen Tylenol as needed for pain relief, patient has good range of motion otherwise neurovascular intact. Will call patient with any different x-ray results, patient and family voiced understanding and agreed with current treatment plan/discharge plan, recommend rest ice compression elevation. Patient will follow-up PCP as directed. Patient was given strict ED return precautions. I was consulted by the IZZY, and we discussed the complexity of the problems being addressed.I approved the treatment and management plan for this patient?s care in the Emergency Department, thus performing a substantive portion of the medical decision making.Signed, Cayden Oneill MD [facility] <CATRACHITA Gibbs - Last Filed: 05/09/25 15:57> Critical Care Time Critical Care Time: No
[2025-05-09] MEDS: IBUPROFEN 400 MG TABLET PO (15:21)
--- NOTE | 2025-05-09 15:24 | PC.NURSE ---
PT MEDICATED PER [facility], ICE PACK TO RIGHT ARM. NO FURTHER NEEDS AT THIS TIME. CALL LIGHT WITHIN REACH. FAMILY AT BEDSIDE
[2025-05-09 16:25] VITALS: BP 135/81; PULSE 86; RESP 18; TEMP 36.7; O2SAT 98
== END 2025-05-09 16:25 | disposition home or self-care (01) ==
PROVIDERS: Emergency Provider Student in an Organized Health Care Education/Training Program; PCP Nurse Practitioner Family
DX: S63.92XA Sprain of unspecified part of left wrist and hand, initial encounter (principal); S66.912A Strain of unspecified muscle, fascia and tendon at wrist and hand level, left hand, initial encounter; W20.8XXA Other cause of strike by thrown, projected or falling object, initial encounter
CPT/HCPCS: 73090; 73110; 73130; 99284

== ENCOUNTER 2025-06-16 11:16 | Outpatient (CLI) | payer MEDICARE, SELFPAY ==
--- NOTE | 2025-06-16 11:20 | XR_ITS ---
FINAL REPORT CLINICAL HISTORY: pain - getting worse COMPARISON: None FINDINGS: LEFT HIP: Two views of the left hip demonstrate no acute fracture or dislocation. The joint spaces appear normal. The visualized bony structures are well aligned. No soft tissue abnormality is seen. There is a sclerotic focus in the lateral aspect of the femoral neck consistent with a bone island. IMPRESSION: No acute bony abnormality. Reviewed, Interpreted and Dictated by Armando Alcantar MD Transcribed by Lyn Hughes Authenticated and [facility]
--- NOTE | 2025-06-16 11:20 | XR_ITS ---
FINAL REPORT TECHNIQUE: Right hip 2 views CLINICAL HISTORY: pain - getting worse COMPARISON: None FINDINGS: RIGHT HIP 3 views of the right hip demonstrate no acute fracture or dislocation. The joint spaces appear normal. The visualized bony structures are well aligned. No soft tissue abnormality is seen. 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 IMPRESSION: No acute bony abnormality. Reviewed, Interpreted and Dictated by Armando Alcantar MD Transcribed by Lyn Hughes Authenticated and [facility]
--- NOTE | 2025-06-16 11:20 | XR_ITS ---
FINAL REPORT TECHNIQUE: 5 views lumbar spine, 2 views right hip, 3 views left hip CLINICAL HISTORY: PAIN IN RIGHT AND LEFT HIP/ LUMBAGO WITH SCIATICA COMPARISON: None FINDINGS: LUMBAR SPINE: 5 views of the lumbar spine were obtained. There is no prior exam for comparison. There is no acute fracture or malalignment. Vertebral body height is preserved. Disc space height is preserved. Minimal spurring is present at the L3 and L5 levels. No acute paraspinal abnormality. IMPRESSION: Minimal degenerative change without acute bony abnormality. RIGHT HIP: Two images of the right hip were obtained. There is no evidence of fracture or dislocation. The joint spaces are intact. There is no soft tissue abnormality identified. There is a small sclerotic density overlying the lateral femoral neck consistent with a bone island. IMPRESSION: No acute bony abnormality. LEFT HIP: 3 images of the left hip were obtained. There is no evidence of fracture or dislocation. The joint spaces are intact. There is no soft tissue abnormality identified. Note is made of a small bone cyst in the left femoral neck. IMPRESSION: No acute bony abnormality. Reviewed, Interpreted and Dictated by Armando Alcantar MD Transcribed by Lyn Hughes Authenticated and [facility]
== END 2025-06-16 23:59 | disposition home or self-care (01) ==
PROVIDERS: PCP Nurse Practitioner Family; Visit Provider Nurse Practitioner Family
DX: M47.26 Other spondylosis with radiculopathy, lumbar region (principal); M85.652 Other cyst of bone, left thigh; R93.6 Abnormal findings on diagnostic imaging of limbs; M25.551 Pain in right hip; M25.552 Pain in left hip
CPT/HCPCS: 72110; 73502